=== PATIENT | female | born 1960 | race Caucasian/White ===

== ENCOUNTER 2017-06-11 13:32 | Emergency (ER) | payer OTHER ==
[2017-06-11 15:20] LABS: ADD MAN DIFF? NO
[2017-06-11 15:21] LABS: BASO % 1 % (0-3); EOS # 0.1 x10^3/uL (0.0-0.7); EOS % 2 % (0-3); HEMATOCRIT 37.4 % (36.0-47.0); HEMOGLOBIN 12.8 g/dL (12.0-15.5); LYMPH # 2.3 x10^3/uL (1.0-4.8); LYMPH % 32 % (24-48); MEAN CORPUSCULAR HEMOGLOBIN 25 pg (25-35); MEAN CORPUSCULAR HGB CONC 34 g/dL (31-37); MEAN CORPUSCULAR VOLUME 74 fL (79-100); MONO # 0.8 x10^3/uL (0.0-1.1); MONO % 11 % (0-9); NEUT % 55 % (31-73); PLATELET COUNT 227 x10^3/uL (140-400); RED BLOOD COUNT 5.08 x10^6/uL (3.50-5.40); RED CELL DISTRIBUTION WIDTH 15.4 % (11.5-14.5); WHITE BLOOD COUNT 7.2 x10^3/uL (4.0-11.0)
[2017-06-11 15:34] LABS: ANION GAP 11 (6-14); BLOOD UREA NITROGEN 11 mg/dL (7-20); CALCIUM 9.2 mg/dL (8.5-10.1); CARBON DIOXIDE 26 mmol/L (21-32); CHLORIDE 101 mmol/L (98-107); CREATININE 0.7 mg/dL (0.6-1.0); GFR 86.2; GLUCOSE 98 mg/dL (70-99); POTASSIUM 3.7 mmol/L (3.5-5.1); SODIUM 138 mmol/L (136-145)
[2017-06-11 15:39] LABS: ALBUMIN 3.7 g/dL (3.4-5.0); ALK PHOS 179 U/L (46-116); ALT (SGPT) 42 U/L (14-59); AST (SGOT) 51 U/L (15-37); DIRECT BILIRUBIN 0.1 mg/dL (0.0-0.2); MAGNESIUM 1.7 mg/dL (1.8-2.4); TOTAL BILIRUBIN 0.4 mg/dL (0.2-1.0); TOTAL PROTEIN 8.9 g/dL (6.4-8.2)
[2017-06-11 15:42] LABS: TROPONINI < 0.017 ng/mL (0.000-0.055)
[2017-06-11 15:47] LABS: CKMB MASS 2.3 ng/mL (0.0-3.6); CREATINE KINASE 231 U/L (26-192)
[2017-06-11 15:47] LABS: NT-PRO BNP 23 pg/mL (0-124); THYROID STIM HORMONE (TSH) 0.462 uIU/mL (0.358-3.74)
[2017-06-11 16:07] LABS: BILIRUBIN,URINE NEGATIVE (NEG); CLARITY,URINE CLEAR; COLOR,URINE YELLOW; GLUCOSE,URINE NEGATIVE (NEG); NITRITE,URINE NEGATIVE (NEG); PH,URINE 5.5; PROTEIN,URINE NEGATIVE (NEG-TRACE)
[2017-06-11 16:13] LABS: BARBITURATES NEG (NEG); BENZODIAZEPINES NEG (NEG); CANNABINOIDS NEG (NEG); COCAINE NEG (NEG); METHADONE NEG (NEG); OPIATES NEG (NEG); PHENCYCLIDINE NEG (NEG)
[2017-06-11 16:16] LABS: AMPHETAMINE/METHAMPHETAMINE NEG (NEG); ETHANOL, URINE NEG (NEG)
[2017-06-11 16:19] LABS: BACTERIA,URINE FEW /HPF (0-FEW); RBC,URINE OCC /HPF (0-2); SQUAMOUS EPITHELIAL CELL,UR MOD /LPF
== END 2017-06-11 17:10 | disposition home or self-care (01) ==
LOC: ER 13:32
DX: N39.0 Urinary tract infection, site not specified (principal); I10 Essential (primary) hypertension; J45.909 Unspecified asthma, uncomplicated; F12.10 Cannabis abuse, uncomplicated; Z90.710 Acquired absence of both cervix and uterus; Z90.49 Acquired absence of other specified parts of digestive tract; Z88.0 Allergy status to penicillin; Z88.5 Allergy status to narcotic agent; Z88.6 Allergy status to analgesic agent
CPT/HCPCS: 36415; 80048; 80076; 80307; 81001; 82553; 83735; 83880; 84443; 84484; 85025; 87086; 93005; 99285-25

== ENCOUNTER 2018-07-15 18:00 | Inpatient (IN) | payer SELFPAY ==
[~2018-07-15] VITALS: Ht 170.2 cm; Wt 90.9 kg
[~2018-07-15 18:00] MED LIST: AMLO5TAB10 PO; HYDR-3164 PO; NAPR500T8 PO; SULF1TAB24 PO
[2018-07-15] MEDS ORDERED: ADENOSINE 6 MG/2 ML VIAL. IV ONE ×2 (18:10→18:15)
[2018-07-15] MEDS ORDERED: ASPIRIN 325 MG TABLET PO ONE (18:15)
[2018-07-15] MEDS ORDERED: IV NORMAL SALINE 1000ML BAG 1,000 ML IV ONE (18:15)
[2018-07-15 18:34] LABS: BASO % 1 % (0-3); EOS % 0 % (0-3); HEMATOCRIT 43.5 % (36.0-47.0); HEMOGLOBIN 14.6 g/dL (12.0-15.5); LYMPH # 2.9 x10^3/uL (1.0-4.8); LYMPH % 52 % (24-48); MEAN CORPUSCULAR HEMOGLOBIN 25 pg (25-35); MEAN CORPUSCULAR HGB CONC 33 g/dL (31-37); MEAN CORPUSCULAR VOLUME 74 fL (79-100); MONO # 0.7 x10^3/uL (0.0-1.1); MONO % 13 % (0-9); NEUT # 1.9 x10^3uL (1.8-7.7); NEUT % 34 % (31-73); PLATELET COUNT 197 x10^3/uL (140-400); RED BLOOD COUNT 5.91 x10^6/uL (3.50-5.40); RED CELL DISTRIBUTION WIDTH 15.7 % (11.5-14.5); WHITE BLOOD COUNT 5.6 x10^3/uL (4.0-11.0)
[2018-07-15 18:53] LABS: PROTHROMBIN TIME PATIENT 12.4 SEC (11.7-14.0)
--- NOTE | 2018-07-15 18:53 | PHYS DOC ---
Past Medical History Past Medical History: Asthma, Hypertension Additional Past Medical Histor: Tubal Past Surgical History: Cholecystectomy, Hysterectomy Additional Past Surgical Histo: R oophorectomy Additional Information: Nonsmoker Alcohol Use: Occasionally Drug Use: Marijuana Adult General Chief Complaint Chief Complaint: RAPID HEART RATE HPI HPI 58-year-old female presents with report of palpitations which started at 5:04 PM this evening. Patient reports she has had these episodes previously which only lasted for a few seconds. Patient reports this episode lasted much longer. Patient denies known trauma. Denies leg swelling or calf tenderness. Denies pleuritic pain. Patient does report some chest discomfort. She does have some dizziness with exertion. Patient also reports history of recent asthma exacerbation and was prescribed steroids and antibiotics but did not fill the prescriptions due to financial constraints. Denies fever or chills. Review of Systems Review of Systems Constitutional: Denies fever or chills [] Eyes: Denies change in visual acuity, redness, or eye pain [] HENT: Denies nasal congestion or sore throat [] Respiratory: Reports some wheezing and shortness of breath [] Cardiovascular: Reports chest discomfort and palpitations GI: Denies abdominal pain, nausea, vomiting : Denies dysuria or hematuria [] Musculoskeletal: Denies back pain or joint pain [] Integument: Denies rash or skin lesions [] Neurologic: Denies headache; reports dizziness Complete systems were reviewed and found to be within normal limits, except as documented in this note. Current Medications Current Medications Current Medications Medications (Trade) Dose Ordered Sig/Baljinder Start Time Stop Time Status Last Admin Dose Admin Adenosine (Adenocard) 6 mg 1X ONCE 07/15/18 18:15 07/15/18 18:16 DC 07/15/18 18:17 6 MG Aspirin (Milana Aspirin) 325 mg 1X ONCE 07/15/18 18:15 07/15/18 18:16 DC 07/15/18 18:42 325 MG Dexamethasone Sodium Phosphate (Decadron) 10 mg 1X ONCE 07/15/18 19:45 07/15/18 19:46 DC 07/15/18 19:45 10 MG Potassium Chloride (Klor-Con) 40 meq 1X ONCE 07/15/18 19:45 07/15/18 19:46 DC 07/15/18 19:45 40 MEQ Sodium Chloride 1,000 ml @ 1,000 mls/hr 1X ONCE 07/15/18 18:15 07/15/18 19:14 DC 07/15/18 18:14 1,000 MLS/HR Allergies Allergies Allergies Coded Allergies Type Severity Reaction Last Updated Verified Penicillins Allergy Unknown 06/11/17 Yes morphine Adverse Reaction Mild Nausea 06/24/16 Yes codeine Adverse Reaction Unknown constipation 06/11/17 Yes Physical Exam Physical Exam Constitutional: Well developed, well nourished, anxious, non-toxic appearance. [ ] HENT: Normocephalic, atraumatic Eyes: Conjunctiva normal, no discharge. [] Neck: Normal range of motion, no tenderness, supple, no stridor. [] Cardiovascular: Tachycardia, Radial pulses and posterior tibialis pulses equal bilaterally Lungs & Thorax: Significant wheezing noted bilaterally, L>R, no accessory muscle use Abdomen: Soft, no tenderness Skin: Warm, dry Extremities: No calf tenderness, ROM intact, no edema. [] Neurologic: Alert and oriented X 3, no focal deficits noted. [] Psychologic: Affect anxious judgement normal Current Patient Data Vital Signs Vital Signs Date Time Temp Pulse Resp B/P (MAP) Pulse Ox O2 Delivery O2 Flow Rate FiO2 07/15/18 19:25 88 26 151/91 (111) 99 Nasal Cannula 2.0 07/15/18 18:00 98.3 98.3 Lab Values Laboratory Tests Test 07/15/18 18:18 White Blood Count 5.6 x10^3/uL (4.0-11.0) Red Blood Count 5.91 x10^6/uL (3.50-5.40) H Hemoglobin 14.6 g/dL (12.0-15.5) Hematocrit 43.5 % (36.0-47.0) Mean Corpuscular Volume 74 fL (79-100) L Mean Corpuscular Hemoglobin 25 pg (25-35) Mean Corpuscular Hemoglobin Concent 33 g/dL (31-37) Red Cell Distribution Width 15.7 % (11.5-14.5) H Platelet Count 197 x10^3/uL (140-400) Neutrophils (%) (Auto) 34 % (31-73) Lymphocytes (%) (Auto) 52 % (24-48) H Monocytes (%) (Auto) 13 % (0-9) H Eosinophils (%) (Auto) 0 % (0-3) Basophils (%) (Auto) 1 % (0-3) Neutrophils # (Auto) 1.9 x10^3uL (1.8-7.7) Lymphocytes # (Auto) 2.9 x10^3/uL (1.0-4.8) Monocytes # (Auto) 0.7 x10^3/uL (0.0-1.1) Eosinophils # (Auto) 0.0 x10^3/uL (0.0-0.7) Basophils # (Auto) 0.0 x10^3/uL (0.0-0.2) Prothrombin Time 12.4 SEC (11.7-14.0) Prothrombin Time INR 1.0 (0.8-1.1) PTT 26 SEC (24-38) Sodium Level 143 mmol/L (136-145) Potassium Level 3.3 mmol/L (3.5-5.1) L Chloride Level 105 mmol/L (98-107) Carbon Dioxide Level 24 mmol/L (21-32) Anion Gap 14 (6-14) Blood Urea Nitrogen 13 mg/dL (7-20) Creatinine 1.0 mg/dL (0.6-1.0) Estimated GFR (Cockcroft-Gault) 56.9 BUN/Creatinine Ratio 13 (6-20) Glucose Level 102 mg/dL (70-99) H Calcium Level 9.5 mg/dL (8.5-10.1) Magnesium Level 2.1 mg/dL (1.8-2.4) Total Bilirubin 0.4 mg/dL (0.2-1.0) Aspartate Amino Transferase (AST) 42 U/L (15-37) H Alanine Aminotransferase (ALT) 29 U/L (14-59) Alkaline Phosphatase 100 U/L (46-116) Creatine Kinase 629 U/L (26-192) H Creatine Kinase MB (Mass) 6.0 ng/mL (0.0-3.6) H Creatine Kinase MB Relative Index 1.0 % (0-4) Troponin I Quantitative < 0.017 ng/mL (0.000-0.055) CO-Cro-X-Type Natriuretic Peptide 55 pg/mL (0-124) Total Protein 9.1 g/dL (6.4-8.2) H Albumin 4.1 g/dL (3.4-5.0) Albumin/Globulin Ratio 0.8 (1.0-1.7) L Laboratory Tests 07/15/18 18:18 Laboratory Tests 07/15/18 18:18 EKG EKG @1804 SVT at 174bpm, ST depression noted in II,III,avF and V3-V6 consistent for demand ischemia, t wave inversions also noted to II,III, and aVF. @1817 (s/p adenosine 6mg): Sinus tachycardia at 102bpm, occasional PVC, incomplete RBBB, improvement of previously seen ST depressions and no longer noted t wave inversions Radiology/Procedures Radiology/Procedures PROCEDURE: PORTABLE CHEST 1V EXAM: Chest, single view. HISTORY: Palpitations. COMPARISON: None. FINDINGS: A frontal view of the chest is obtained. There is no infiltrate, pleural effusion or pneumothorax. The heart is normal in size for portable technique. IMPRESSION: No acute pulmonary finding. Electronically signed by: Eve Shin MD (07/15/2018 7:59 PM) [place] [id number] Course & Med Decision Making Course & Med Decision Making Pertinent Labs and Imaging studies reviewed. (See chart for details) Patient presents with report of palpitations which started proximal 1 hour prior to arrival. Patient noted to be an SVT based on telemetry monitoring and twelve-lead EKG. Signs of demand ischemia also appreciated. Attempted vagal maneuvers without success. 6 mg of adenosine utilized with successful cardioversion back to normal sinus rhythm and resolution of demand ischemia. Labs obtained and posted to chart. Initial troponin WNL. CPK elevated. IVF hydration given. Aspirin provided. Chest x-ray without acute process. Patient with wheezing consistent for asthmatic bronchitis. Dexamethasone and Xopenex tx provided. Patient requiring admission for further evaluation and treatment. Discussed with Dr. Kumar (hospitalist) who is in agreement with admission. Discussed findings and plan with patient and family, who acknowledge understanding and agreement. Dragon Disclaimer Dragon Disclaimer This electronic medical record was generated, in whole or in part, using a voice recognition dictation system. Departure Departure Impression: Primary Impression: SVT (supraventricular tachycardia) Additional Impressions: Bronchitis Hypokalemia Disposition: ADMITTED INPATIENT (CVC) Admitting Physician: Francoise Kumar Condition: GUARDED Referrals: SREEKANTH EDWARDS MD (PCP) Critical Care Time Critical care time was 30 minutes which includes time at bedside, spent in discussion of patient's care with specialists and/or family members, with interpretation of laboratory and/or radiological studies and is exclusive of procedures. Problem Qualifiers SHAREE MICHELLE DO Jul 15, 2018 18:53
[2018-07-15 18:59] LABS: CALCIUM 9.5 mg/dL (8.5-10.1); GFR 56.9; POTASSIUM 3.3 mmol/L (3.5-5.1)
[2018-07-15 19:04] LABS: ALBUMIN 4.1 g/dL (3.4-5.0); ALBUMIN/GLOBULIN RATIO 0.8 (1.0-1.7); MAGNESIUM 2.1 mg/dL (1.8-2.4); TOTAL BILIRUBIN 0.4 mg/dL (0.2-1.0); TOTAL PROTEIN 9.1 g/dL (6.4-8.2)
[2018-07-15] MEDS ORDERED: DEXAMETHASONE SOD PHOS 20 MG/5 ML VIAL. IV ONE (19:45)
[2018-07-15] MEDS ORDERED: POTASSIUM CHLORIDE 20 MEQ TABLET.ER. PO ONE (19:45)
--- NOTE | 2018-07-15 20:03 | RAD ---
EXAM: Chest, single view. HISTORY: Palpitations. COMPARISON: None. FINDINGS: A frontal view of the chest is obtained. There is no infiltrate, pleural effusion or pneumothorax. The heart is normal in size for portable technique. IMPRESSION: No acute pulmonary finding. Electronically signed by: Eve Shin MD (07/15/2018 7:59 PM) [id number]
[2018-07-15] MEDS ORDERED: LEVALBUTEROL 1.25 MG/0.5 ML NEBU. NEB ONE (20:15)
[2018-07-15 21:15] VITALS: BP 154/85
[2018-07-15 23:15] VITALS: BP 137/78
[2018-07-16 03:45] VITALS: BP 178/78
[2018-07-16 08:00] VITALS: BP 176/87
--- NOTE | 2018-07-16 10:31 | NUR ---
PATIENTS HEART RATE IN 150'S PATIENT STATING SHE CAN FEEL HER HEART RACING. PATIENT ASKED TO BEAR DOWN. PATIENTS HEART CONTINUED TO SUSTAIN IN 140'S. PATIENT ASKED TO BEAR DOWN AGAIN AND PATIENTS HEART RATE LOWERED TO 101 THEN TO 70'S. WILL CONTINUE TO MONITOR PATIENT.
--- NOTE | 2018-07-16 10:46 | EKG ---
[facility] [address] [place] [address] Test Date: 2018-07-15 Test Time: 18:17:30 Pat Name: ART MITCHELL Department: Room: 209 1 Gender: F Marine Superintendent: : 1960 Requested By: SHAREE MICHELLE Order Number: [id number] Reading MD: Evangelista Varela Measurements Intervals [place] Rate: 102 P: 56 ME: 138 QRS: 42 QRSD: 78 T: 58 QT: 310 QTc: 408 Interpretive Statements SINUS TACHYCARDIA COMPLEX(ES) WITH ABERRANT INTRAVENTRICULAR CONDUCTION VENTRICULAR PREMATURE COMPLEX(ES) QRS(T) CONTOUR ABNORMALITY CONSIDER ANTEROLATERAL MYOCARDIAL DAMAGE Electronically Signed On 07-19-2018 11:08:50 BEER COOLER by Evangelista Varela
--- NOTE | 2018-07-16 10:46 | EKG ---
[facility] [address] [place] [address] Test Date: 2018-07-15 Test Time: 18:04:58 Pat Name: ART MITCHELL Department: Room: 209 1 Gender: F Poke In: : 1960 Requested By: SHAREE MICHELLE Order Number: [id number] Reading MD: Evangelista Varela Measurements Intervals [place] Rate: 174 P: NE: QRS: 43 QRSD: 74 T: -85 QT: 254 QTc: 438 Interpretive Statements SUPRAVENTRICULAR TACHYCARDIA ST ABNORMALITY, POSSIBLE INFEROLATERAL SUBENDOCARDIAL INJURY ABNORMAL ECG Electronically Signed On 07-19-2018 11:08:33 CLINICAL PRODUCT SPECIALIST by Evangelista Varela
[2018-07-16 11:12] VITALS: BP 146/92
--- NOTE | 2018-07-16 12:28 | HP ---
ADMIT DATE: 07/16/2018 CHIEF COMPLAINT: Rapid heart rate. HISTORY OF PRESENT ILLNESS: The patient is a pleasant 58-year-old female who presented to the ER with palpitations and a rapid heart rate, started at 5:04 p.m. yesterday. Describes it as agonizing, rated at 10/10, worse with moving, better with sitting still. She tried taking some home medicines and that did not work. While in the ER, she was noted to be in SVT. I believe she got some adenosine that seems to have worked, but she also has harsh cough consistent with bronchitis. I have discussed the case with ER physician. We are going to admit the patient and give her some IV antibiotics, breathing treatments and oxygen, steroids and have Cardiology see her as well. PAST MEDICAL HISTORY: Asthma, hypertension, tubal , cholecystectomy, hysterectomy, right oophorectomy. ALLERGIES: PENICILLIN, CODEINE, AND MORPHINE. FAMILY HISTORY: Coronary artery disease. SOCIAL HISTORY: She is trying to quit smoking, but still smokes several cigarettes a day. She used to smoke 3 packs. MEDICATIONS: Reviewed. She is on amlodipine and naproxen. REVIEW OF SYSTEMS: GENERAL: No history of weight change, weakness or fevers. SKIN: No bruising, hair changes or rashes. EYES: No blurred, double or loss of vision. NOSE AND THROAT: No history of nosebleeds, hoarseness or sore throat. HEART: No history of palpitations, chest pain or shortness of breath on exertion. LUNGS: She complains of a cough. GASTROINTESTINAL: Denies changes in appetite, nausea, vomiting, diarrhea or constipation. GENITOURINARY: No history of frequency, urgency, hesitancy or nocturia. NEUROLOGIC: Denies history of numbness, tingling, tremor or weakness. PSYCHIATRIC: No history of panic, anxiety or depression. ENDOCRINE: No history of heat or cold intolerance, polyuria or polydipsia. EXTREMITIES: Denies muscle weakness, joint pain, pain on walking or stiffness. PHYSICAL EXAMINATION: VITAL SIGNS: Temperature 98, pulse 78, respirations 18, blood pressure 146/92. GENERAL: She is alert, cooperative. HEART: Normal S1, S2. LUNGS: Mostly clear, but she has a harsh cough. ABDOMEN: Soft. EXTREMITIES: Trace edema. SKIN: No rash. ENDOCRINE: No thyromegaly. LYMPHATICS: No cervical nodes. HEMATOPOIETIC: No bruising. PSYCHIATRIC: She is stable. LABORATORY DATA: Hematology is normal. Electrolytes are normal other than potassium of 3.3, glucose is 102. CPK 629, CK-MB mass index is 6%, but troponin is 0. INR is 1. Chest x-ray is negative. ASSESSMENT AND PLAN: Resolving supraventricular tachycardia with probable clinical bronchitis and mild rhabdomyolysis, hypokalemia. The patient is being admitted. We will give her IV fluids, DuoNebs (I wanted to use Xopenex, but apparently we do not have it), IV Levaquin, IV Solu-Medrol, replace her potassium, frequent labs, home meds. DVT prophylaxis, cardiac monitoring. JULIETA FREIRE DO DR: ROSANNA/humberto JOB#: [id number] / [id number]
[2018-07-16] MEDS: IPRATRPIUM/ALBUTEROL 0.5/2.5MG 3 ML NEBU. NEB SCH ×3 (12:30→19:00)
--- NOTE | 2018-07-16 13:25 | PDOC2 ---
CONSULT Date of Consult Date of Consult DATE: 07/16/18 TIME: 13:20 Reason for Consult Reason for Consult: SVT Referring Physician Referring Physician: Dr. Kumar Identification/Chief Complaint Chief Complaint SOB Source Source: Chart review, Patient History of Present Illness Reason for Visit: The patient is a 58-year-old female with a history of asthma. She had had a recent exacerbation of her asthma and was prescribed steroids antibiotics but did not take these medications. The patient came to the emergency room for episodes of increasing shortness of breath. In the emergency room the patient was found to be in a supraventricular tachycardia. This responded to adenosine and she has resumed sinus rhythm. Chest x-ray shows no acute changes. Troponins have been normal. The patient now is resting much more comfortably. Past Medical History Cardiovascular: HTN Pulmonary: Asthma, Bronchitis Past Surgical History Past Surgical History: Cholecystectomy, Hysterectomy, Other (tubal and an oophorectomy.) Family History Family History: Heart Disease Social History <1 pack per day ALCOHOL: occassional Drugs: Marijuana Current Problem List Problem List Problems Medical Problems: (1) Hypokalemia Status: Acute (2) SVT (supraventricular tachycardia) Status: Acute Current Medications Current Medications Current Medications Adenosine (Adenocard) 6 mg STK-MED ONCE IV ; Start 07/15/18 at 18:10; Stop at 18:11; Status DC Aspirin ([place] Aspirin) 325 mg 1X ONCE PO Last administered on 07/15/18at 18:42 ; Start 07/15/18 at 18:15; Stop 07/15/18 at 18:16; Status DC Sodium Chloride 1,000 ml @ 1,000 mls/hr 1X ONCE IV Last administered on at 18:14; Start 07/15/18 at 18:15; Stop 07/15/18 at 19:14; Status DC Adenosine (Adenocard) 6 mg 1X ONCE IV Last administered on 07/15/18at 18:17; Start 07/15/18 at 18:15; Stop 07/15/18 at 18:16; Status DC Potassium Chloride (Klor-Con) 40 meq 1X ONCE PO Last administered on 07/15/18at 19:45; Start 07/15/18 at 19:45; Stop 07/15/18 at 19:46; Status DC Dexamethasone Sodium Phosphate (Decadron) 10 mg 1X ONCE IV Last administered on 07/15/18at 19:45; Start 07/15/18 at 19:45; Stop 07/15/18 at 19:46; Status DC Levalbuterol HCl (Xopenex) 2.5 mg 1X ONCE NEB Last administered on 07/15/18at 20 :05; Start 07/15/18 at 20:15; Stop 07/15/18 at 20:16; Status DC Influenza Virus Vaccine (Afluria Trivalent [id number] Syringe) 0.5 ml ONCE ONCE VAX IM ; Start 07/16/18 at 09:00; Stop 07/16/18 at 09:01; Status DC Levofloxacin/ Dextrose 100 ml @ 100 mls/hr Q24H IV ; Start 07/16/18 at 13:00 Methylprednisolone Sodium Succinate (SOLU-Medrol 40MG VIAL) 30 mg BID IV ; Start 07/16/18 at 13:00 Albuterol/ Ipratropium (Duoneb) 3 ml RTQID NEB ; Start 07/16/18 at 12:30 Active Scripts Active Allergies Allergies: Coded Allergies: Penicillins (Verified Allergy, Intermediate, 07/16/18) codeine (Verified Adverse Reaction, Mild, constipation, 07/16/18) morphine (Verified Adverse Reaction, Mild, Nausea, 06/24/16) ROS Respiratory: YES: Cough, Shortness of breath Physical Exam General: mild distress Lungs: Other (mildly decreased breath sounds) Heart: Regular rate Abdomen: Normal bowel sounds Vitals VITALS Vital Signs Date Time Temp Pulse Resp B/P (MAP) Pulse Ox O2 Delivery O2 Flow Rate FiO2 07/16/18 11:12 98.3 78 18 146/92 (110) 94 Nasal Cannula 2.0 98.3 Labs Labs Laboratory Tests Test 07/15/18 18:18 White Blood Count 5.6 x10^3/uL (4.0-11.0) Red Blood Count 5.91 x10^6/uL (3.50-5.40) Hemoglobin 14.6 g/dL (12.0-15.5) Hematocrit 43.5 % (36.0-47.0) Mean Corpuscular Volume 74 fL (79-100) Mean Corpuscular Hemoglobin 25 pg (25-35) Mean Corpuscular Hemoglobin Concent 33 g/dL (31-37) Red Cell Distribution Width 15.7 % (11.5-14.5) Platelet Count 197 x10^3/uL (140-400) Neutrophils (%) (Auto) 34 % (31-73) Lymphocytes (%) (Auto) 52 % (24-48) Monocytes (%) (Auto) 13 % (0-9) Eosinophils (%) (Auto) 0 % (0-3) Basophils (%) (Auto) 1 % (0-3) Neutrophils # (Auto) 1.9 x10^3uL (1.8-7.7) Lymphocytes # (Auto) 2.9 x10^3/uL (1.0-4.8) Monocytes # (Auto) 0.7 x10^3/uL (0.0-1.1) Eosinophils # (Auto) 0.0 x10^3/uL (0.0-0.7) Basophils # (Auto) 0.0 x10^3/uL (0.0-0.2) Prothrombin Time 12.4 SEC (11.7-14.0) Prothromb Time International Ratio 1.0 (0.8-1.1) Activated Partial Thromboplast Time 26 SEC (24-38) Sodium Level 143 mmol/L (136-145) Potassium Level 3.3 mmol/L (3.5-5.1) Chloride Level 105 mmol/L (98-107) Carbon Dioxide Level 24 mmol/L (21-32) Anion Gap 14 (6-14) Blood Urea Nitrogen 13 mg/dL (7-20) Creatinine 1.0 mg/dL (0.6-1.0) Estimated GFR (Cockcroft-Gault) 56.9 BUN/Creatinine Ratio 13 (6-20) Glucose Level 102 mg/dL (70-99) Calcium Level 9.5 mg/dL (8.5-10.1) Magnesium Level 2.1 mg/dL (1.8-2.4) Total Bilirubin 0.4 mg/dL (0.2-1.0) Aspartate Amino Transf (AST/SGOT) 42 U/L (15-37) Alanine Aminotransferase (ALT/SGPT) 29 U/L (14-59) Alkaline Phosphatase 100 U/L (46-116) Creatine Kinase 629 U/L (26-192) Creatine Kinase MB (Mass) 6.0 ng/mL (0.0-3.6) Creatine Kinase MB Relative Index 1.0 % (0-4) Troponin I Quantitative < 0.017 ng/mL (0.000-0.055) MF-Ztz-H-Type Natriuretic Peptide 55 pg/mL (0-124) Total Protein 9.1 g/dL (6.4-8.2) Albumin 4.1 g/dL (3.4-5.0) Albumin/Globulin Ratio 0.8 (1.0-1.7) Laboratory Tests Test 07/15/18 18:18 White Blood Count 5.6 x10^3/uL (4.0-11.0) Red Blood Count 5.91 x10^6/uL (3.50-5.40) Hemoglobin 14.6 g/dL (12.0-15.5) Hematocrit 43.5 % (36.0-47.0) Mean Corpuscular Volume 74 fL (79-100) Mean Corpuscular Hemoglobin 25 pg (25-35) Mean Corpuscular Hemoglobin Concent 33 g/dL (31-37) Red Cell Distribution Width 15.7 % (11.5-14.5) Platelet Count 197 x10^3/uL (140-400) Neutrophils (%) (Auto) 34 % (31-73) Lymphocytes (%) (Auto) 52 % (24-48) Monocytes (%) (Auto) 13 % (0-9) Eosinophils (%) (Auto) 0 % (0-3) Basophils (%) (Auto) 1 % (0-3) Neutrophils # (Auto) 1.9 x10^3uL (1.8-7.7) Lymphocytes # (Auto) 2.9 x10^3/uL (1.0-4.8) Monocytes # (Auto) 0.7 x10^3/uL (0.0-1.1) Eosinophils # (Auto) 0.0 x10^3/uL (0.0-0.7) Basophils # (Auto) 0.0 x10^3/uL (0.0-0.2) Prothrombin Time 12.4 SEC (11.7-14.0) Prothromb Time International Ratio 1.0 (0.8-1.1) Activated Partial Thromboplast Time 26 SEC (24-38) Sodium Level 143 mmol/L (136-145) Potassium Level 3.3 mmol/L (3.5-5.1) Chloride Level 105 mmol/L (98-107) Carbon Dioxide Level 24 mmol/L (21-32) Anion Gap 14 (6-14) Blood Urea Nitrogen 13 mg/dL (7-20) Creatinine 1.0 mg/dL (0.6-1.0) Estimated GFR (Cockcroft-Gault) 56.9 BUN/Creatinine Ratio 13 (6-20) Glucose Level 102 mg/dL (70-99) Calcium Level 9.5 mg/dL (8.5-10.1) Magnesium Level 2.1 mg/dL (1.8-2.4) Total Bilirubin 0.4 mg/dL (0.2-1.0) Aspartate Amino Transf (AST/SGOT) 42 U/L (15-37) Alanine Aminotransferase (ALT/SGPT) 29 U/L (14-59) Alkaline Phosphatase 100 U/L (46-116) Creatine Kinase 629 U/L (26-192) Creatine Kinase MB (Mass) 6.0 ng/mL (0.0-3.6) Creatine Kinase MB Relative Index 1.0 % (0-4) Troponin I Quantitative < 0.017 ng/mL (0.000-0.055) RX-Ijj-T-Type Natriuretic Peptide 55 pg/mL (0-124) Total Protein 9.1 g/dL (6.4-8.2) Albumin 4.1 g/dL (3.4-5.0) Albumin/Globulin Ratio 0.8 (1.0-1.7) Images Images Chest x-ray with no acute changes. Assessment/Plan Assessment/Plan 1. Asthma/bronchitis. Patient has been started on antibiotics and steroid treatment. 2. Paroxysmal supraventricular tachycardia. Probably secondary to the patient's pulmonary condition. Will not use beta blockers in the setting of her pulmonary issues. We'll start on lower dose calcium channel blockers. 3. Hypokalemia. Being replaced. Thank you for allowing us to participate in the care of your patient. DAISY HANCOCK MD Jul 16, 2018 13:25
[2018-07-16] MEDS: methylPREDNISolone SOD SUCC PF 40 MG/ML VIAL. IV SCH ×2 (13:47→20:23)
[2018-07-16 15:05] VITALS: BP 157/85
[2018-07-16 18:29] VITALS: BP 160/88
[2018-07-16 23:05] VITALS: BP 149/91
[2018-07-17 03:10] VITALS: BP 157/97
[2018-07-17 05:11] LABS: BASO % 0 % (0-3); EOS % 0 % (0-3); HEMATOCRIT 39.2 % (36.0-47.0); HEMOGLOBIN 12.9 g/dL (12.0-15.5); LYMPH # 0.7 x10^3/uL (1.0-4.8); LYMPH % 24 % (24-48); MEAN CORPUSCULAR HEMOGLOBIN 25 pg (25-35); MEAN CORPUSCULAR HGB CONC 33 g/dL (31-37); MEAN CORPUSCULAR VOLUME 75 fL (79-100); MONO # 0.2 x10^3/uL (0.0-1.1); MONO % 7 % (0-9); NEUT # 2.2 x10^3uL (1.8-7.7); NEUT % 69 % (31-73); PLATELET COUNT 171 x10^3/uL (140-400); RED BLOOD COUNT 5.24 x10^6/uL (3.50-5.40); RED CELL DISTRIBUTION WIDTH 15.3 % (11.5-14.5); WHITE BLOOD COUNT 3.1 x10^3/uL (4.0-11.0)
[2018-07-17 05:43] LABS: MAGNESIUM 2.1 mg/dL (1.8-2.4)
[2018-07-17 05:44] LABS: CHOLESTEROL/HDL RATIO 3.4
[2018-07-17 06:45] LABS: CALCIUM 9.2 mg/dL (8.5-10.1); CREATININE 0.8 mg/dL (0.6-1.0); GFR 73.7; POTASSIUM 4.9 mmol/L (3.5-5.1)
[2018-07-17 07:28] VITALS: BP 174/91
[2018-07-17] MEDS: IPRATRPIUM/ALBUTEROL 0.5/2.5MG 3 ML NEBU. NEB SCH ×4 (07:34→20:24)
[2018-07-17] MEDS: LACTOBACILLUS RHAMNOSUS GG 1 CAPSULE. PO SCH ×2 (08:25→20:43)
[2018-07-17] MEDS: methylPREDNISolone SOD SUCC PF 40 MG/ML VIAL. IV SCH ×2 (08:25→20:43)
--- NOTE | 2018-07-17 08:31 | EKG ---
[facility] [address] [place] [address] Test Date: 2018-07-17 Test Time: 07:49:50 Pat Name: ART MITCHELL Department: Room: 209 1 Gender: F Clay Temperer: MERONRT : 1960 Requested By: DAISY HANCOCK Order Number: [id number] Reading MD: Naseem Powell MD Measurements Intervals [place] Rate: 71 P: 51 ID: [id number] QRS: 45 QRSD: 80 T: 56 QT: 380 QTc: 413 Interpretive Statements SINUS RHYTHM VENTRICULAR PREMATURE COMPLEX(ES) Electronically Signed On 07-19-2018 7:00:04 SMASHER by Naseem Powell MD
--- NOTE | 2018-07-17 09:23 | PDOC ---
PROGRESS NOTES Subjective Subjective Patient seen and examined Objective Objective Vital Signs Date Time Temp Pulse Resp B/P (MAP) Pulse Ox O2 Delivery O2 Flow Rate FiO2 07/17/18 08:25 97 174/91 07/17/18 07:36 99 Room Air 07/17/18 07:28 97.9 16 97.9 07/16/18 19:51 2.0 Intake and Output 07/17/18 07:00 Intake Total 1100 ml Output Total 1300 ml Balance -200 ml Intake Oral 1100 ml Output Urine Total 1300 ml Physical Exam Abdomen: Normal bowel sounds Heart: Regular rate General: No acute distress Lungs: Other (slightly decreased breath sounds) Assessment Assessment Problems Medical Problems: (1) Hypokalemia Status: Acute (2) SVT (supraventricular tachycardia) Status: Acute 1. Asthma/bronchitis. Patient is improving on present treatment. 2. Paroxysmal supraventricular tachycardia. Probably secondary to the patient's pulmonary condition. Will not use beta blockers in the setting of her pulmonary issues. Start on calcium channel blockers. Rhythm has been stable overnight. 3. Hypokalemia. Being replaced. Morning potassium level of 4.9. Comment Review of Relevant I have reviewed the following items doreen (where applicable) has been applied. Labs Laboratory Tests Test 07/15/18 18:18 07/17/18 04:15 White Blood Count 5.6 x10^3/uL (4.0-11.0) 3.1 x10^3/uL (4.0-11.0) Red Blood Count 5.91 x10^6/uL (3.50-5.40) 5.24 x10^6/uL (3.50-5.40) Hemoglobin 14.6 g/dL (12.0-15.5) 12.9 g/dL (12.0-15.5) Hematocrit 43.5 % (36.0-47.0) 39.2 % (36.0-47.0) Mean Corpuscular Volume 74 fL (79-100) 75 fL (79-100) Mean Corpuscular Hemoglobin 25 pg (25-35) 25 pg (25-35) Mean Corpuscular Hemoglobin Concent 33 g/dL (31-37) 33 g/dL (31-37) Red Cell Distribution Width 15.7 % (11.5-14.5) 15.3 % (11.5-14.5) Platelet Count 197 x10^3/uL (140-400) 171 x10^3/uL (140-400) Neutrophils (%) (Auto) 34 % (31-73) 69 % (31-73) Lymphocytes (%) (Auto) 52 % (24-48) 24 % (24-48) Monocytes (%) (Auto) 13 % (0-9) 7 % (0-9) Eosinophils (%) (Auto) 0 % (0-3) 0 % (0-3) Basophils (%) (Auto) 1 % (0-3) 0 % (0-3) Neutrophils # (Auto) 1.9 x10^3uL (1.8-7.7) 2.2 x10^3uL (1.8-7.7) Lymphocytes # (Auto) 2.9 x10^3/uL (1.0-4.8) 0.7 x10^3/uL (1.0-4.8) Monocytes # (Auto) 0.7 x10^3/uL (0.0-1.1) 0.2 x10^3/uL (0.0-1.1) Eosinophils # (Auto) 0.0 x10^3/uL (0.0-0.7) 0.0 x10^3/uL (0.0-0.7) Basophils # (Auto) 0.0 x10^3/uL (0.0-0.2) 0.0 x10^3/uL (0.0-0.2) Prothrombin Time 12.4 SEC (11.7-14.0) Prothromb Time International Ratio 1.0 (0.8-1.1) Activated Partial Thromboplast Time 26 SEC (24-38) Sodium Level 143 mmol/L (136-145) 141 mmol/L (136-145) Potassium Level 3.3 mmol/L (3.5-5.1) 4.9 mmol/L (3.5-5.1) Chloride Level 105 mmol/L (98-107) 104 mmol/L (98-107) Carbon Dioxide Level 24 mmol/L (21-32) 25 mmol/L (21-32) Anion Gap 14 (6-14) 12 (6-14) Blood Urea Nitrogen 13 mg/dL (7-20) 12 mg/dL (7-20) Creatinine 1.0 mg/dL (0.6-1.0) 0.8 mg/dL (0.6-1.0) Estimated GFR (Cockcroft-Gault) 56.9 73.7 BUN/Creatinine Ratio 13 (6-20) Glucose Level 102 mg/dL (70-99) 188 mg/dL (70-99) Calcium Level 9.5 mg/dL (8.5-10.1) 9.2 mg/dL (8.5-10.1) Magnesium Level 2.1 mg/dL (1.8-2.4) 2.1 mg/dL (1.8-2.4) Total Bilirubin 0.4 mg/dL (0.2-1.0) Aspartate Amino Transf (AST/SGOT) 42 U/L (15-37) Alanine Aminotransferase (ALT/SGPT) 29 U/L (14-59) Alkaline Phosphatase 100 U/L (46-116) Creatine Kinase 629 U/L (26-192) Creatine Kinase MB (Mass) 6.0 ng/mL (0.0-3.6) Creatine Kinase MB Relative Index 1.0 % (0-4) Troponin I Quantitative < 0.017 ng/mL (0.000-0.055) < 0.017 ng/mL (0.000-0.055) [id number]-Type Natriuretic Peptide 55 pg/mL (0-124) Total Protein 9.1 g/dL (6.4-8.2) Albumin 4.1 g/dL (3.4-5.0) Albumin/Globulin Ratio 0.8 (1.0-1.7) Triglycerides Level 55 mg/dL (0-150) Cholesterol Level 163 mg/dL (0-200) LDL Cholesterol, Calculated 104 mg/dL (0-100) VLDL Cholesterol, Calculated 11 mg/dL (0-40) Non-HDL Cholesterol Calculated 115 mg/dL (0-129) HDL Cholesterol 48 mg/dL (40-60) Cholesterol/HDL Ratio 3.4 Laboratory Tests Test 07/17/18 04:15 White Blood Count 3.1 x10^3/uL (4.0-11.0) Red Blood Count 5.24 x10^6/uL (3.50-5.40) Hemoglobin 12.9 g/dL (12.0-15.5) Hematocrit 39.2 % (36.0-47.0) Mean Corpuscular Volume 75 fL (79-100) Mean Corpuscular Hemoglobin 25 pg (25-35) Mean Corpuscular Hemoglobin Concent 33 g/dL (31-37) Red Cell Distribution Width 15.3 % (11.5-14.5) Platelet Count 171 x10^3/uL (140-400) Neutrophils (%) (Auto) 69 % (31-73) Lymphocytes (%) (Auto) 24 % (24-48) Monocytes (%) (Auto) 7 % (0-9) Eosinophils (%) (Auto) 0 % (0-3) Basophils (%) (Auto) 0 % (0-3) Neutrophils # (Auto) 2.2 x10^3uL (1.8-7.7) Lymphocytes # (Auto) 0.7 x10^3/uL (1.0-4.8) Monocytes # (Auto) 0.2 x10^3/uL (0.0-1.1) Eosinophils # (Auto) 0.0 x10^3/uL (0.0-0.7) Basophils # (Auto) 0.0 x10^3/uL (0.0-0.2) Sodium Level 141 mmol/L (136-145) Potassium Level 4.9 mmol/L (3.5-5.1) Chloride Level 104 mmol/L (98-107) Carbon Dioxide Level 25 mmol/L (21-32) Anion Gap 12 (6-14) Blood Urea Nitrogen 12 mg/dL (7-20) Creatinine 0.8 mg/dL (0.6-1.0) Estimated GFR (Cockcroft-Gault) 73.7 Glucose Level 188 mg/dL (70-99) Calcium Level 9.2 mg/dL (8.5-10.1) Magnesium Level 2.1 mg/dL (1.8-2.4) Troponin I Quantitative < 0.017 ng/mL (0.000-0.055) Triglycerides Level 55 mg/dL (0-150) Cholesterol Level 163 mg/dL (0-200) LDL Cholesterol, Calculated 104 mg/dL (0-100) VLDL Cholesterol, Calculated 11 mg/dL (0-40) Non-HDL Cholesterol Calculated 115 mg/dL (0-129) HDL Cholesterol 48 mg/dL (40-60) Cholesterol/HDL Ratio 3.4 Medications Current Medications Adenosine (Adenocard) 6 mg STK-MED ONCE IV ; Start 07/15/18 at 18:10; Stop at 18:11; Status DC Aspirin (Milana Aspirin) 325 mg 1X ONCE PO Last administered on 07/15/18at 18:42 ; Start 07/15/18 at 18:15; Stop 07/15/18 at 18:16; Status DC Sodium Chloride 1,000 ml @ 1,000 mls/hr 1X ONCE IV Last administered on at 18:14; Start 07/15/18 at 18:15; Stop 07/15/18 at 19:14; Status DC Adenosine (Adenocard) 6 mg 1X ONCE IV Last administered on 07/15/18at 18:17; Start 07/15/18 at 18:15; Stop 07/15/18 at 18:16; Status DC Potassium Chloride (Klor-Con) 40 meq 1X ONCE PO Last administered on 07/15/18at 19:45; Start 07/15/18 at 19:45; Stop 07/15/18 at 19:46; Status DC Dexamethasone Sodium Phosphate (Decadron) 10 mg 1X ONCE IV Last administered on 07/15/18at 19:45; Start 07/15/18 at 19:45; Stop 07/15/18 at 19:46; Status DC Levalbuterol HCl (Xopenex) 2.5 mg 1X ONCE NEB Last administered on 07/15/18at 20 :05; Start 07/15/18 at 20:15; Stop 07/15/18 at 20:16; Status DC Influenza Virus Vaccine (Afluria Trivalent [id number] Syringe) 0.5 ml ONCE ONCE VAX IM ; Start 07/16/18 at 09:00; Stop 07/16/18 at 09:01; Status DC Levofloxacin/ Dextrose 100 ml @ 100 mls/hr Q24H IV Last administered on at 13:47; Start 07/16/18 at 13:00 Methylprednisolone Sodium Succinate (SOLU-Medrol 40MG VIAL) 30 mg BID IV Last administered on 07/17/18at 08:25; Start 07/16/18 at 13:00 Albuterol/ Ipratropium (Duoneb) 3 ml RTQID NEB Last administered on 07/17/18at 07 :34; Start 07/16/18 at 12:30 Diltiazem HCl (Cardizem 24hr Cd) 180 mg DAILY PO Last administered on 07/17/18at 08:25; Start 07/16/18 at 14:00 Lactobacillus Rhamnosus (Culturelle) 1 cap BID PO Last administered on at 08:25; Start 07/17/18 at 09:00 Active Scripts Active Vitals/I & O Vital Sign - Last 24 Hours 07/16/18 07/16/18 07/16/18 07/16/18 11:12 13:48 15:05 15:38 Temp 98.3 97.9 98.3 97.9 Pulse 78 78 68 Resp 18 20 B/P (MAP) 146/92 (110) 146/92 157/85 (109) Pulse Ox 94 96 100 O2 Delivery Nasal Cannula Room Air Nasal Cannula O2 Flow Rate 2.0 2.0 07/16/18 07/16/18 07/16/18 07/16/18 18:29 19:01 19:51 23:05 Temp 98.2 98.0 98.2 98.0 Pulse 71 76 Resp 16 20 B/P (MAP) 160/88 (112) 149/91 (110) Pulse Ox 98 96 O2 Delivery Room Air Room Air Nasal Cannula Room Air O2 Flow Rate 2.0 07/17/18 07/17/18 07/17/18 07/17/18 03:10 07:28 07:36 08:25 Temp 97.9 97.9 97.9 97.9 Pulse 69 97 97 Resp 20 16 B/P (MAP) 157/97 (117) 174/91 (118) 174/91 Pulse Ox 96 98 99 O2 Delivery Room Air Room Air Room Air Intake and Output 07/16/18 07/16/18 07/17/18 15:00 23:00 07:00 Intake Total 500 ml 0 ml 600 ml Output Total 600 ml 700 ml Balance 500 ml -600 ml -100 ml DAISY HANCOCK MD Jul 17, 2018 09:23
[2018-07-17 11:00] VITALS: BP 158/89
--- NOTE | 2018-07-17 13:50 | PDOC ---
PROGRESS NOTES Chief Complaint Chief Complaint SVT, bronchitis History of Present Illness History of Present Illness Pt seen and examined in her room. Alert, oriented, and cooperative. SVT, resolving. pt desires social service consult. cardiology following. hope to dc tomorrow if ok with consults. Vitals Vitals Vital Signs Date Time Temp Pulse Resp B/P (MAP) Pulse Ox O2 Delivery O2 Flow Rate FiO2 07/17/18 12:08 98 Room Air 2.0 07/17/18 11:00 98.2 83 16 158/89 (112) 98.2 Physical Exam General: Alert, Oriented X3, Cooperative, No acute distress Heart: Regular rate Lungs: Clear Abdomen: Normal bowel sounds, No tenderness, No hepatosplenomegaly Extremities: No clubbing, No cyanosis, No edema Skin: No rashes, No breakdown, No significant lesion Labs LABS Laboratory Tests Test 07/17/18 04:15 White Blood Count 3.1 x10^3/uL (4.0-11.0) Red Blood Count 5.24 x10^6/uL (3.50-5.40) Hemoglobin 12.9 g/dL (12.0-15.5) Hematocrit 39.2 % (36.0-47.0) Mean Corpuscular Volume 75 fL (79-100) Mean Corpuscular Hemoglobin 25 pg (25-35) Mean Corpuscular Hemoglobin Concent 33 g/dL (31-37) Red Cell Distribution Width 15.3 % (11.5-14.5) Platelet Count 171 x10^3/uL (140-400) Neutrophils (%) (Auto) 69 % (31-73) Lymphocytes (%) (Auto) 24 % (24-48) Monocytes (%) (Auto) 7 % (0-9) Eosinophils (%) (Auto) 0 % (0-3) Basophils (%) (Auto) 0 % (0-3) Neutrophils # (Auto) 2.2 x10^3uL (1.8-7.7) Lymphocytes # (Auto) 0.7 x10^3/uL (1.0-4.8) Monocytes # (Auto) 0.2 x10^3/uL (0.0-1.1) Eosinophils # (Auto) 0.0 x10^3/uL (0.0-0.7) Basophils # (Auto) 0.0 x10^3/uL (0.0-0.2) Sodium Level 141 mmol/L (136-145) Potassium Level 4.9 mmol/L (3.5-5.1) Chloride Level 104 mmol/L (98-107) Carbon Dioxide Level 25 mmol/L (21-32) Anion Gap 12 (6-14) Blood Urea Nitrogen 12 mg/dL (7-20) Creatinine 0.8 mg/dL (0.6-1.0) Estimated GFR (Cockcroft-Gault) 73.7 Glucose Level 188 mg/dL (70-99) Calcium Level 9.2 mg/dL (8.5-10.1) Magnesium Level 2.1 mg/dL (1.8-2.4) Troponin I Quantitative < 0.017 ng/mL (0.000-0.055) Triglycerides Level 55 mg/dL (0-150) Cholesterol Level 163 mg/dL (0-200) LDL Cholesterol, Calculated 104 mg/dL (0-100) VLDL Cholesterol, Calculated 11 mg/dL (0-40) Non-HDL Cholesterol Calculated 115 mg/dL (0-129) HDL Cholesterol 48 mg/dL (40-60) Cholesterol/HDL Ratio 3.4 Review of Systems Review of Systems general: no fever, no rash, no acute distress cardiac: no murmur, no arrhythmia, no chest pain respiratory: no shortness of breath, no wheezing, no rales/rhonchi Assessment and Plan Assessmemt and Plan Assessment resolving supraventricular tachycardia bronchitis clinical bronchitis mild rhabdomyolysis hypokalemia, resolved Plan consult social service worker per pt request continue diltiazem per cardiology IV fluids DuoNebs IV Levaquin IV Solu-Medrol hold K+ frequent labs home meds DVT prophylaxis hope to dc tomorrow if ok with consults Comment Review of Relevant I have reviewed the following items doreen (where applicable) has been applied. Labs Laboratory Tests Test 07/15/18 18:18 07/17/18 04:15 White Blood Count 5.6 x10^3/uL (4.0-11.0) 3.1 x10^3/uL (4.0-11.0) Red Blood Count 5.91 x10^6/uL (3.50-5.40) 5.24 x10^6/uL (3.50-5.40) Hemoglobin 14.6 g/dL (12.0-15.5) 12.9 g/dL (12.0-15.5) Hematocrit 43.5 % (36.0-47.0) 39.2 % (36.0-47.0) Mean Corpuscular Volume 74 fL (79-100) 75 fL (79-100) Mean Corpuscular Hemoglobin 25 pg (25-35) 25 pg (25-35) Mean Corpuscular Hemoglobin Concent 33 g/dL (31-37) 33 g/dL (31-37) Red Cell Distribution Width 15.7 % (11.5-14.5) 15.3 % (11.5-14.5) Platelet Count 197 x10^3/uL (140-400) 171 x10^3/uL (140-400) Neutrophils (%) (Auto) 34 % (31-73) 69 % (31-73) Lymphocytes (%) (Auto) 52 % (24-48) 24 % (24-48) Monocytes (%) (Auto) 13 % (0-9) 7 % (0-9) Eosinophils (%) (Auto) 0 % (0-3) 0 % (0-3) Basophils (%) (Auto) 1 % (0-3) 0 % (0-3) Neutrophils # (Auto) 1.9 x10^3uL (1.8-7.7) 2.2 x10^3uL (1.8-7.7) Lymphocytes # (Auto) 2.9 x10^3/uL (1.0-4.8) 0.7 x10^3/uL (1.0-4.8) Monocytes # (Auto) 0.7 x10^3/uL (0.0-1.1) 0.2 x10^3/uL (0.0-1.1) Eosinophils # (Auto) 0.0 x10^3/uL (0.0-0.7) 0.0 x10^3/uL (0.0-0.7) Basophils # (Auto) 0.0 x10^3/uL (0.0-0.2) 0.0 x10^3/uL (0.0-0.2) Prothrombin Time 12.4 SEC (11.7-14.0) Prothromb Time International Ratio 1.0 (0.8-1.1) Activated Partial Thromboplast Time 26 SEC (24-38) Sodium Level 143 mmol/L (136-145) 141 mmol/L (136-145) Potassium Level 3.3 mmol/L (3.5-5.1) 4.9 mmol/L (3.5-5.1) Chloride Level 105 mmol/L (98-107) 104 mmol/L (98-107) Carbon Dioxide Level 24 mmol/L (21-32) 25 mmol/L (21-32) Anion Gap 14 (6-14) 12 (6-14) Blood Urea Nitrogen 13 mg/dL (7-20) 12 mg/dL (7-20) Creatinine 1.0 mg/dL (0.6-1.0) 0.8 mg/dL (0.6-1.0) Estimated GFR (Cockcroft-Gault) 56.9 73.7 BUN/Creatinine Ratio 13 (6-20) Glucose Level 102 mg/dL (70-99) 188 mg/dL (70-99) Calcium Level 9.5 mg/dL (8.5-10.1) 9.2 mg/dL (8.5-10.1) Magnesium Level 2.1 mg/dL (1.8-2.4) 2.1 mg/dL (1.8-2.4) Total Bilirubin 0.4 mg/dL (0.2-1.0) Aspartate Amino Transf (AST/SGOT) 42 U/L (15-37) Alanine Aminotransferase (ALT/SGPT) 29 U/L (14-59) Alkaline Phosphatase 100 U/L (46-116) Creatine Kinase 629 U/L (26-192) Creatine Kinase MB (Mass) 6.0 ng/mL (0.0-3.6) Creatine Kinase MB Relative Index 1.0 % (0-4) Troponin I Quantitative < 0.017 ng/mL (0.000-0.055) < 0.017 ng/mL (0.000-0.055) AE-[id number]-[id number]-Type Natriuretic Peptide 55 pg/mL (0-124) Total Protein 9.1 g/dL (6.4-8.2) Albumin 4.1 g/dL (3.4-5.0) Albumin/Globulin Ratio 0.8 (1.0-1.7) Triglycerides Level 55 mg/dL (0-150) Cholesterol Level 163 mg/dL (0-200) LDL Cholesterol, Calculated 104 mg/dL (0-100) VLDL Cholesterol, Calculated 11 mg/dL (0-40) Non-HDL Cholesterol Calculated 115 mg/dL (0-129) HDL Cholesterol 48 mg/dL (40-60) Cholesterol/HDL Ratio 3.4 Laboratory Tests Test 07/17/18 04:15 White Blood Count 3.1 x10^3/uL (4.0-11.0) Red Blood Count 5.24 x10^6/uL (3.50-5.40) Hemoglobin 12.9 g/dL (12.0-15.5) Hematocrit 39.2 % (36.0-47.0) Mean Corpuscular Volume 75 fL (79-100) Mean Corpuscular Hemoglobin 25 pg (25-35) Mean Corpuscular Hemoglobin Concent 33 g/dL (31-37) Red Cell Distribution Width 15.3 % (11.5-14.5) Platelet Count 171 x10^3/uL (140-400) Neutrophils (%) (Auto) 69 % (31-73) Lymphocytes (%) (Auto) 24 % (24-48) Monocytes (%) (Auto) 7 % (0-9) Eosinophils (%) (Auto) 0 % (0-3) Basophils (%) (Auto) 0 % (0-3) Neutrophils # (Auto) 2.2 x10^3uL (1.8-7.7) Lymphocytes # (Auto) 0.7 x10^3/uL (1.0-4.8) Monocytes # (Auto) 0.2 x10^3/uL (0.0-1.1) Eosinophils # (Auto) 0.0 x10^3/uL (0.0-0.7) Basophils # (Auto) 0.0 x10^3/uL (0.0-0.2) Sodium Level 141 mmol/L (136-145) Potassium Level 4.9 mmol/L (3.5-5.1) Chloride Level 104 mmol/L (98-107) Carbon Dioxide Level 25 mmol/L (21-32) Anion Gap 12 (6-14) Blood Urea Nitrogen 12 mg/dL (7-20) Creatinine 0.8 mg/dL (0.6-1.0) Estimated GFR (Cockcroft-Gault) 73.7 Glucose Level 188 mg/dL (70-99) Calcium Level 9.2 mg/dL (8.5-10.1) Magnesium Level 2.1 mg/dL (1.8-2.4) Troponin I Quantitative < 0.017 ng/mL (0.000-0.055) Triglycerides Level 55 mg/dL (0-150) Cholesterol Level 163 mg/dL (0-200) LDL Cholesterol, Calculated 104 mg/dL (0-100) VLDL Cholesterol, Calculated 11 mg/dL (0-40) Non-HDL Cholesterol Calculated 115 mg/dL (0-129) HDL Cholesterol 48 mg/dL (40-60) Cholesterol/HDL Ratio 3.4 Medications Current Medications Adenosine (Adenocard) 6 mg STK-MED ONCE IV ; Start 07/15/18 at 18:10; Stop at 18:11; Status DC Aspirin ([employer] Aspirin) 325 mg 1X ONCE PO Last administered on 07/15/18at 18:42 ; Start 07/15/18 at 18:15; Stop 07/15/18 at 18:16; Status DC Sodium Chloride 1,000 ml @ 1,000 mls/hr 1X ONCE IV Last administered on at 18:14; Start 07/15/18 at 18:15; Stop 07/15/18 at 19:14; Status DC Adenosine (Adenocard) 6 mg 1X ONCE IV Last administered on 07/15/18at 18:17; Start 07/15/18 at 18:15; Stop 07/15/18 at 18:16; Status DC Potassium Chloride (Klor-Con) 40 meq 1X ONCE PO Last administered on 07/15/18at 19:45; Start 07/15/18 at 19:45; Stop 07/15/18 at 19:46; Status DC Dexamethasone Sodium Phosphate (Decadron) 10 mg 1X ONCE IV Last administered on 07/15/18at 19:45; Start 07/15/18 at 19:45; Stop 07/15/18 at 19:46; Status DC Levalbuterol HCl (Xopenex) 2.5 mg 1X ONCE NEB Last administered on 07/15/18at 20 :05; Start 07/15/18 at 20:15; Stop 07/15/18 at 20:16; Status DC Influenza Virus Vaccine (Afluria Trivalent [id number] Syringe) 0.5 ml ONCE ONCE VAX IM ; Start 07/16/18 at 09:00; Stop 07/16/18 at 09:01; Status DC Levofloxacin/ Dextrose 100 ml @ 100 mls/hr Q24H IV Last administered on at 13:47; Start 07/16/18 at 13:00 Methylprednisolone Sodium Succinate (SOLU-Medrol 40MG VIAL) 30 mg BID IV Last administered on 07/17/18 08:25; Start 07/16/18 at 13:00 Albuterol/ Ipratropium (Duoneb) 3 ml RTQID NEB Last administered on 07/17/18 12 :07; Start 07/16/18 at 12:30 Diltiazem HCl (Cardizem 24hr Cd) 180 mg DAILY PO Last administered on 07/17/18 08:25; Start 07/16/18 at 14:00 Lactobacillus Rhamnosus (Culturelle) 1 cap BID PO Last administered on 08:25; Start 07/17/18 at 09:00 Active Scripts Active Vitals/I & O Vital Sign - Last 24 Hours 07/16/18 07/16/18 07/16/18 07/16/18 13:48 15:05 15:38 18:29 Temp 97.9 98.2 97.9 98.2 Pulse 78 68 71 Resp 20 16 B/P (MAP) 146/92 157/85 (109) 160/88 (112) Pulse Ox 96 100 98 O2 Delivery Room Air Nasal Cannula Room Air O2 Flow Rate 2.0 07/16/18 07/16/18 07/16/18 07/17/18 19:01 19:51 23:05 03:10 Temp 98.0 97.9 98.0 97.9 Pulse 76 69 Resp 20 20 B/P (MAP) 149/91 (110) 157/97 (117) Pulse Ox 96 96 O2 Delivery Room Air Nasal Cannula Room Air Room Air O2 Flow Rate 2.0 07/17/18 07/17/18 07/17/18 07/17/18 07:28 07:36 08:20 08:25 Temp 97.9 97.9 Pulse 97 97 Resp 16 B/P (MAP) 174/91 (118) 174/91 Pulse Ox 98 99 O2 Delivery Room Air Room Air Room Air 07/17/18 07/17/18 11:00 12:08 Temp 98.2 98.2 Pulse 83 Resp 16 B/P (MAP) 158/89 (112) Pulse Ox 98 98 O2 Delivery Room Air Room Air O2 Flow Rate 2.0 Intake and Output 07/16/18 07/16/18 07/17/18 15:00 23:00 07:00 Intake Total 500 ml 0 ml 600 ml Output Total 600 ml 700 ml Balance 500 ml -600 ml -100 ml JULIETA FREIRE III DO Jul 17, 2018 13:50
[2018-07-17 15:00] VITALS: BP 156/84
--- NOTE | 2018-07-17 17:15 | NUR ---
PATIENT HR IN 170S AFTER COUGHING FIT. PATIENT SYMPTOMATIC. AFTER 3 TIMES OF TRYING VAGAL MANEUVER PATIENT BACK IN SR. WILL CONTINUE TO MONITOR PATIENT.
[2018-07-17 19:25] VITALS: BP 147/90
[2018-07-17 23:15] VITALS: BP 152/94
[2018-07-18 03:05] VITALS: BP 144/95
[2018-07-18 07:00] VITALS: BP 166/87
[2018-07-18 07:23] LABS: BASO % 0 % (0-3); EOS % 0 % (0-3); HEMATOCRIT 39.4 % (36.0-47.0); LYMPH # 0.8 x10^3/uL (1.0-4.8); LYMPH % 16 % (24-48); MEAN CORPUSCULAR HEMOGLOBIN 24 pg (25-35); MEAN CORPUSCULAR HGB CONC 33 g/dL (31-37); MEAN CORPUSCULAR VOLUME 74 fL (79-100); MONO # 0.3 x10^3/uL (0.0-1.1); MONO % 6 % (0-9); NEUT % 78 % (31-73); PLATELET COUNT 188 x10^3/uL (140-400); RED BLOOD COUNT 5.34 x10^6/uL (3.50-5.40); RED CELL DISTRIBUTION WIDTH 15.5 % (11.5-14.5); WHITE BLOOD COUNT 5.1 x10^3/uL (4.0-11.0)
[2018-07-18 07:32] LABS: CALCIUM 8.9 mg/dL (8.5-10.1); CREATININE 0.8 mg/dL (0.6-1.0); GFR 73.7; POTASSIUM 4.2 mmol/L (3.5-5.1)
[2018-07-18] MEDS: IPRATRPIUM/ALBUTEROL 0.5/2.5MG 3 ML NEBU. NEB SCH ×2 (07:35→11:09)
[2018-07-18] MEDS: LACTOBACILLUS RHAMNOSUS GG 1 CAPSULE. PO SCH (08:41)
[2018-07-18] MEDS: methylPREDNISolone SOD SUCC PF 40 MG/ML VIAL. IV SCH (08:41)
[2018-07-18 11:09] VITALS: BP 151/77
--- NOTE | 2018-07-18 11:23 | NUR ---
SS following for discharge planning. SS reviewed pt chart and met with pt in room. Pt is self pay pt. Pt is from home and is currently on room air. Pt reported that she works at [employer] and makes $11/hour. Pt reported that she met with [facility] this morning. Pt requested assistance with her hospital bill. SS provided pt with contact information for the business office in regards to her bill. SS contacted [facility] and was notified that pt does not qualify for disability or medicaid at this time. SS notified case management as well. Pt's RN notified.
[2018-07-18] MEDS ORDERED: DILT180C2 PO (12:04)
[2018-07-18] MEDS ORDERED: METH4TAB2 PO (12:05)
[2018-07-18] MEDS ORDERED: CIPR500T94 PO (12:06)
[2018-07-18] MEDS ORDERED: ALBU2.5V8 INH (12:07)
--- NOTE | 2018-07-18 12:25 | NUR ---
PATIENT DISCHARGING TO HOME. DISCHARGE INSTRUCTIONS GIVEN. PIV AND HEART MONITOR REMOVED. ESCORTED PATIENT TO ER ENTRANCE PER WHEELCHAIR.
--- NOTE | 2018-07-18 12:41 | PDOC ---
PROGRESS NOTES Chief Complaint Chief Complaint SVT Bronchitis History of Present Illness History of Present Illness Patient is resting comfortably in bed, denies any complaints. She is requesting to see oncology social worker and is requesting discharge. Cardiology following. Probable discharge today. Vitals Vitals Vital Signs Date Time Temp Pulse Resp B/P (MAP) Pulse Ox O2 Delivery O2 Flow Rate FiO2 07/18/18 11:09 98.0 77 18 151/77 (101) 96 Room Air 98.0 07/17/18 12:08 2.0 Physical Exam General: Alert, Oriented X3, Cooperative, No acute distress Heart: Regular rate, No murmurs Lungs: Clear Abdomen: Normal bowel sounds, No tenderness, No hepatosplenomegaly Extremities: No clubbing, No cyanosis, No edema Skin: No rashes, No significant lesion Labs LABS Laboratory Tests Test 07/18/18 06:35 White Blood Count 5.1 x10^3/uL (4.0-11.0) Red Blood Count 5.34 x10^6/uL (3.50-5.40) Hemoglobin 13.0 g/dL (12.0-15.5) Hematocrit 39.4 % (36.0-47.0) Mean Corpuscular Volume 74 fL (79-100) Mean Corpuscular Hemoglobin 24 pg (25-35) Mean Corpuscular Hemoglobin Concent 33 g/dL (31-37) Red Cell Distribution Width 15.5 % (11.5-14.5) Platelet Count 188 x10^3/uL (140-400) Neutrophils (%) (Auto) 78 % (31-73) Lymphocytes (%) (Auto) 16 % (24-48) Monocytes (%) (Auto) 6 % (0-9) Eosinophils (%) (Auto) 0 % (0-3) Basophils (%) (Auto) 0 % (0-3) Neutrophils # (Auto) 4.0 x10^3uL (1.8-7.7) Lymphocytes # (Auto) 0.8 x10^3/uL (1.0-4.8) Monocytes # (Auto) 0.3 x10^3/uL (0.0-1.1) Eosinophils # (Auto) 0.0 x10^3/uL (0.0-0.7) Basophils # (Auto) 0.0 x10^3/uL (0.0-0.2) Sodium Level 138 mmol/L (136-145) Potassium Level 4.2 mmol/L (3.5-5.1) Chloride Level 100 mmol/L (98-107) Carbon Dioxide Level 27 mmol/L (21-32) Anion Gap 11 (6-14) Blood Urea Nitrogen 12 mg/dL (7-20) Creatinine 0.8 mg/dL (0.6-1.0) Estimated GFR (Cockcroft-Gault) 73.7 Glucose Level 185 mg/dL (70-99) Calcium Level 8.9 mg/dL (8.5-10.1) Review of Systems Review of Systems Denies shortness of breath Denies palpitations Denies chest pain Assessment and Plan Assessmemt and Plan Problems Medical Problems: (1) Hypokalemia Status: Acute (2) SVT (supraventricular tachycardia) Status: Acute Assessment: SVT Bronchitis Plan: Possible discharge today Discharge and disposition pending Discontinue IV levaquin, prescribed ciprofloxacin po BID Continue cardiac monitoring Continue DuoNebs Reviewed labs - continue to monitor PT/OT Pending referral to oncology social worker Prescribed cardizem and steroids Prescribed albuterol inhaler prn Comment Review of Relevant I have reviewed the following items doreen (where applicable) has been applied. Labs Laboratory Tests Test 07/17/18 04:15 07/18/18 06:35 White Blood Count 3.1 x10^3/uL (4.0-11.0) 5.1 x10^3/uL (4.0-11.0) Red Blood Count 5.24 x10^6/uL (3.50-5.40) 5.34 x10^6/uL (3.50-5.40) Hemoglobin 12.9 g/dL (12.0-15.5) 13.0 g/dL (12.0-15.5) Hematocrit 39.2 % (36.0-47.0) 39.4 % (36.0-47.0) Mean Corpuscular Volume 75 fL (79-100) 74 fL (79-100) Mean Corpuscular Hemoglobin 25 pg (25-35) 24 pg (25-35) Mean Corpuscular Hemoglobin Concent 33 g/dL (31-37) 33 g/dL (31-37) Red Cell Distribution Width 15.3 % (11.5-14.5) 15.5 % (11.5-14.5) Platelet Count 171 x10^3/uL (140-400) 188 x10^3/uL (140-400) Neutrophils (%) (Auto) 69 % (31-73) 78 % (31-73) Lymphocytes (%) (Auto) 24 % (24-48) 16 % (24-48) Monocytes (%) (Auto) 7 % (0-9) 6 % (0-9) Eosinophils (%) (Auto) 0 % (0-3) 0 % (0-3) Basophils (%) (Auto) 0 % (0-3) 0 % (0-3) Neutrophils # (Auto) 2.2 x10^3uL (1.8-7.7) 4.0 x10^3uL (1.8-7.7) Lymphocytes # (Auto) 0.7 x10^3/uL (1.0-4.8) 0.8 x10^3/uL (1.0-4.8) Monocytes # (Auto) 0.2 x10^3/uL (0.0-1.1) 0.3 x10^3/uL (0.0-1.1) Eosinophils # (Auto) 0.0 x10^3/uL (0.0-0.7) 0.0 x10^3/uL (0.0-0.7) Basophils # (Auto) 0.0 x10^3/uL (0.0-0.2) 0.0 x10^3/uL (0.0-0.2) Sodium Level 141 mmol/L (136-145) 138 mmol/L (136-145) Potassium Level 4.9 mmol/L (3.5-5.1) 4.2 mmol/L (3.5-5.1) Chloride Level 104 mmol/L (98-107) 100 mmol/L (98-107) Carbon Dioxide Level 25 mmol/L (21-32) 27 mmol/L (21-32) Anion Gap 12 (6-14) 11 (6-14) Blood Urea Nitrogen 12 mg/dL (7-20) 12 mg/dL (7-20) Creatinine 0.8 mg/dL (0.6-1.0) 0.8 mg/dL (0.6-1.0) Estimated GFR (Cockcroft-Gault) 73.7 73.7 Glucose Level 188 mg/dL (70-99) 185 mg/dL (70-99) Calcium Level 9.2 mg/dL (8.5-10.1) 8.9 mg/dL (8.5-10.1) Magnesium Level 2.1 mg/dL (1.8-2.4) Troponin I Quantitative < 0.017 ng/mL (0.000-0.055) Triglycerides Level 55 mg/dL (0-150) Cholesterol Level 163 mg/dL (0-200) LDL Cholesterol, Calculated 104 mg/dL (0-100) VLDL Cholesterol, Calculated 11 mg/dL (0-40) Non-HDL Cholesterol Calculated 115 mg/dL (0-129) HDL Cholesterol 48 mg/dL (40-60) Cholesterol/HDL Ratio 3.4 Laboratory Tests Test 07/18/18 06:35 White Blood Count 5.1 x10^3/uL (4.0-11.0) Red Blood Count 5.34 x10^6/uL (3.50-5.40) Hemoglobin 13.0 g/dL (12.0-15.5) Hematocrit 39.4 % (36.0-47.0) Mean Corpuscular Volume 74 fL (79-100) Mean Corpuscular Hemoglobin 24 pg (25-35) Mean Corpuscular Hemoglobin Concent 33 g/dL (31-37) Red Cell Distribution Width 15.5 % (11.5-14.5) Platelet Count 188 x10^3/uL (140-400) Neutrophils (%) (Auto) 78 % (31-73) Lymphocytes (%) (Auto) 16 % (24-48) Monocytes (%) (Auto) 6 % (0-9) Eosinophils (%) (Auto) 0 % (0-3) Basophils (%) (Auto) 0 % (0-3) Neutrophils # (Auto) 4.0 x10^3uL (1.8-7.7) Lymphocytes # (Auto) 0.8 x10^3/uL (1.0-4.8) Monocytes # (Auto) 0.3 x10^3/uL (0.0-1.1) Eosinophils # (Auto) 0.0 x10^3/uL (0.0-0.7) Basophils # (Auto) 0.0 x10^3/uL (0.0-0.2) Sodium Level 138 mmol/L (136-145) Potassium Level 4.2 mmol/L (3.5-5.1) Chloride Level 100 mmol/L (98-107) Carbon Dioxide Level 27 mmol/L (21-32) Anion Gap 11 (6-14) Blood Urea Nitrogen 12 mg/dL (7-20) Creatinine 0.8 mg/dL (0.6-1.0) Estimated GFR (Cockcroft-Gault) 73.7 Glucose Level 185 mg/dL (70-99) Calcium Level 8.9 mg/dL (8.5-10.1) Medications Current Medications Adenosine (Adenocard) 6 mg STK-MED ONCE IV ; Start 07/15/18 at 18:10; Stop at 18:11; Status DC Aspirin (Milana Aspirin) 325 mg 1X ONCE PO Last administered on 07/15/18at 18:42 ; Start 07/15/18 at 18:15; Stop 07/15/18 at 18:16; Status DC Sodium Chloride 1,000 ml @ 1,000 mls/hr 1X ONCE IV Last administered on at 18:14; Start 07/15/18 at 18:15; Stop 07/15/18 at 19:14; Status DC Adenosine (Adenocard) 6 mg 1X ONCE IV Last administered on 07/15/18at 18:17; Start 07/15/18 at 18:15; Stop 07/15/18 at 18:16; Status DC Potassium Chloride (Klor-Con) 40 meq 1X ONCE PO Last administered on 07/15/18at 19:45; Start 07/15/18 at 19:45; Stop 07/15/18 at 19:46; Status DC Dexamethasone Sodium Phosphate (Decadron) 10 mg 1X ONCE IV Last administered on 07/15/18at 19:45; Start 07/15/18 at 19:45; Stop 07/15/18 at 19:46; Status DC Levalbuterol HCl (Xopenex) 2.5 mg 1X ONCE NEB Last administered on 07/15/18at 20 :05; Start 07/15/18 at 20:15; Stop 07/15/18 at 20:16; Status DC Influenza Virus Vaccine (Afluria Trivalent [id number] Syringe) 0.5 ml ONCE ONCE VAX IM ; Start 07/16/18 at 09:00; Stop 07/16/18 at 09:01; Status DC Levofloxacin/ Dextrose 100 ml @ 100 mls/hr Q24H IV Last administered on 13:52; Start 07/16/18 at 13:00 Methylprednisolone Sodium Succinate (SOLU-Medrol 40MG VIAL) 30 mg BID IV Last administered on 07/18/18 08:41; Start 07/16/18 at 13:00 Albuterol/ Ipratropium (Duoneb) 3 ml RTQID NEB Last administered on 07/18/18 11 :09; Start 07/16/18 at 12:30 Diltiazem HCl (Cardizem 24hr Cd) 180 mg DAILY PO Last administered on 07/18/18 08:39; Start 07/16/18 at 14:00 Lactobacillus Rhamnosus (Culturelle) 1 cap BID PO Last administered on 08:41; Start 07/17/18 at 09:00 Active Scripts Active Reported Proair Hfa (Albuterol Sulfate) 8.5 Gm Hfa.aer.ad 1 Puff INH PRN Q6HRS PRN Cipro (Ciprofloxacin Hcl) 500 Mg Tablet 1 Tab PO BID 7 Days Medrol (Methylprednisolone) 4 Mg Tab.ds.pk 1 Pkg PO UD Cardizem Cd (Diltiazem Hcl) 180 Mg Cap.er.24h 180 Mg PO DAILY Vitals/I & O Vital Sign - Last 24 Hours 07/17/18 07/17/18 07/17/18 07/17/18 15:00 16:42 19:15 19:25 Temp 98.2 97.6 98.2 97.6 Pulse 72 73 Resp 16 20 B/P (MAP) 156/84 (108) 147/90 (109) Pulse Ox 97 94 O2 Delivery Room Air Room Air Room Air Room Air 07/17/18 07/17/18 07/18/18 07/18/18 20:25 23:15 03:05 07:00 Temp 97.8 97.7 97.7 97.8 97.7 97.7 Pulse 74 72 66 Resp 18 18 18 B/P (MAP) 152/94 (113) 144/95 (111) 166/87 (113) Pulse Ox 97 96 96 94 O2 Delivery Room Air Room Air Room Air Room Air 07/18/18 07/18/18 07/18/18 07/18/18 07:35 08:00 08:39 11:09 Pulse 66 B/P (MAP) 166/87 Pulse Ox 98 O2 Delivery Room Air Room Air Room Air 07/18/18 11:09 Temp 98.0 98.0 Pulse 77 Resp 18 B/P (MAP) 151/77 (101) Pulse Ox 96 O2 Delivery Room Air Intake and Output 07/17/18 07/17/18 07/18/18 15:00 23:00 07:00 Intake Total 860 ml 240 ml 200 ml Output Total 400 ml 300 ml 700 ml Balance 460 ml -60 ml -500 ml JULIETA FREIRE III DO Jul 18, 2018 12:41
--- NOTE | 2018-07-18 17:07 | PDOC ---
PROGRESS NOTES Subjective Subjective Patient seen and examined She reports feeling better today. Objective Objective Vital Signs Date Time Temp Pulse Resp B/P (MAP) Pulse Ox O2 Delivery O2 Flow Rate FiO2 07/18/18 11:09 98.0 77 18 151/77 (101) 96 Room Air 98.0 07/17/18 12:08 2.0 Intake and Output 07/18/18 07:00 Intake Total 1300 ml Output Total 1400 ml Balance -100 ml Intake Oral 1300 ml Output Urine Total 1400 ml # Voids 2 Physical Exam Abdomen: Normal bowel sounds Heart: Regular rate General: mild distress Lungs: Other (slightly decreased breath sounds) Assessment Assessment Problems Medical Problems: (1) Hypokalemia Status: Acute (2) SVT (supraventricular tachycardia) Status: Acute 1. Asthma/bronchitis. Patient is improving on present treatment. 2. Paroxysmal supraventricular tachycardia. Probably secondary to the patient's pulmonary condition. Will not use beta blockers in the setting of her pulmonary issues. On calcium channel blockers. Rhythm has been stable. 3. Hypokalemia. Replaced. Comment Review of Relevant I have reviewed the following items doreen (where applicable) has been applied. Labs Laboratory Tests Test 07/17/18 04:15 07/18/18 06:35 White Blood Count 3.1 x10^3/uL (4.0-11.0) 5.1 x10^3/uL (4.0-11.0) Red Blood Count 5.24 x10^6/uL (3.50-5.40) 5.34 x10^6/uL (3.50-5.40) Hemoglobin 12.9 g/dL (12.0-15.5) 13.0 g/dL (12.0-15.5) Hematocrit 39.2 % (36.0-47.0) 39.4 % (36.0-47.0) Mean Corpuscular Volume 75 fL (79-100) 74 fL (79-100) Mean Corpuscular Hemoglobin 25 pg (25-35) 24 pg (25-35) Mean Corpuscular Hemoglobin Concent 33 g/dL (31-37) 33 g/dL (31-37) Red Cell Distribution Width 15.3 % (11.5-14.5) 15.5 % (11.5-14.5) Platelet Count 171 x10^3/uL (140-400) 188 x10^3/uL (140-400) Neutrophils (%) (Auto) 69 % (31-73) 78 % (31-73) Lymphocytes (%) (Auto) 24 % (24-48) 16 % (24-48) Monocytes (%) (Auto) 7 % (0-9) 6 % (0-9) Eosinophils (%) (Auto) 0 % (0-3) 0 % (0-3) Basophils (%) (Auto) 0 % (0-3) 0 % (0-3) Neutrophils # (Auto) 2.2 x10^3uL (1.8-7.7) 4.0 x10^3uL (1.8-7.7) Lymphocytes # (Auto) 0.7 x10^3/uL (1.0-4.8) 0.8 x10^3/uL (1.0-4.8) Monocytes # (Auto) 0.2 x10^3/uL (0.0-1.1) 0.3 x10^3/uL (0.0-1.1) Eosinophils # (Auto) 0.0 x10^3/uL (0.0-0.7) 0.0 x10^3/uL (0.0-0.7) Basophils # (Auto) 0.0 x10^3/uL (0.0-0.2) 0.0 x10^3/uL (0.0-0.2) Sodium Level 141 mmol/L (136-145) 138 mmol/L (136-145) Potassium Level 4.9 mmol/L (3.5-5.1) 4.2 mmol/L (3.5-5.1) Chloride Level 104 mmol/L (98-107) 100 mmol/L (98-107) Carbon Dioxide Level 25 mmol/L (21-32) 27 mmol/L (21-32) Anion Gap 12 (6-14) 11 (6-14) Blood Urea Nitrogen 12 mg/dL (7-20) 12 mg/dL (7-20) Creatinine 0.8 mg/dL (0.6-1.0) 0.8 mg/dL (0.6-1.0) Estimated GFR (Cockcroft-Gault) 73.7 73.7 Glucose Level 188 mg/dL (70-99) 185 mg/dL (70-99) Calcium Level 9.2 mg/dL (8.5-10.1) 8.9 mg/dL (8.5-10.1) Magnesium Level 2.1 mg/dL (1.8-2.4) Troponin I Quantitative < 0.017 ng/mL (0.000-0.055) Triglycerides Level 55 mg/dL (0-150) Cholesterol Level 163 mg/dL (0-200) LDL Cholesterol, Calculated 104 mg/dL (0-100) VLDL Cholesterol, Calculated 11 mg/dL (0-40) Non-HDL Cholesterol Calculated 115 mg/dL (0-129) HDL Cholesterol 48 mg/dL (40-60) Cholesterol/HDL Ratio 3.4 Laboratory Tests Test 07/18/18 06:35 White Blood Count 5.1 x10^3/uL (4.0-11.0) Red Blood Count 5.34 x10^6/uL (3.50-5.40) Hemoglobin 13.0 g/dL (12.0-15.5) Hematocrit 39.4 % (36.0-47.0) Mean Corpuscular Volume 74 fL (79-100) Mean Corpuscular Hemoglobin 24 pg (25-35) Mean Corpuscular Hemoglobin Concent 33 g/dL (31-37) Red Cell Distribution Width 15.5 % (11.5-14.5) Platelet Count 188 x10^3/uL (140-400) Neutrophils (%) (Auto) 78 % (31-73) Lymphocytes (%) (Auto) 16 % (24-48) Monocytes (%) (Auto) 6 % (0-9) Eosinophils (%) (Auto) 0 % (0-3) Basophils (%) (Auto) 0 % (0-3) Neutrophils # (Auto) 4.0 x10^3uL (1.8-7.7) Lymphocytes # (Auto) 0.8 x10^3/uL (1.0-4.8) Monocytes # (Auto) 0.3 x10^3/uL (0.0-1.1) Eosinophils # (Auto) 0.0 x10^3/uL (0.0-0.7) Basophils # (Auto) 0.0 x10^3/uL (0.0-0.2) Sodium Level 138 mmol/L (136-145) Potassium Level 4.2 mmol/L (3.5-5.1) Chloride Level 100 mmol/L (98-107) Carbon Dioxide Level 27 mmol/L (21-32) Anion Gap 11 (6-14) Blood Urea Nitrogen 12 mg/dL (7-20) Creatinine 0.8 mg/dL (0.6-1.0) Estimated GFR (Cockcroft-Gault) 73.7 Glucose Level 185 mg/dL (70-99) Calcium Level 8.9 mg/dL (8.5-10.1) Medications Current Medications Adenosine (Adenocard) 6 mg STK-MED ONCE IV ; Start 07/15/18 at 18:10; Stop at 18:11; Status DC Aspirin (Milana Aspirin) 325 mg 1X ONCE PO Last administered on 07/15/18at 18:42 ; Start 07/15/18 at 18:15; Stop 07/15/18 at 18:16; Status DC Sodium Chloride 1,000 ml @ 1,000 mls/hr 1X ONCE IV Last administered on at 18:14; Start 07/15/18 at 18:15; Stop 07/15/18 at 19:14; Status DC Adenosine (Adenocard) 6 mg 1X ONCE IV Last administered on 07/15/18at 18:17; Start 07/15/18 at 18:15; Stop 07/15/18 at 18:16; Status DC Potassium Chloride (Klor-Con) 40 meq 1X ONCE PO Last administered on 07/15/18at 19:45; Start 07/15/18 at 19:45; Stop 07/15/18 at 19:46; Status DC Dexamethasone Sodium Phosphate (Decadron) 10 mg 1X ONCE IV Last administered on 07/15/18at 19:45; Start 07/15/18 at 19:45; Stop 07/15/18 at 19:46; Status DC Levalbuterol HCl (Xopenex) 2.5 mg 1X ONCE NEB Last administered on 07/15/18at 20 :05; Start 07/15/18 at 20:15; Stop 07/15/18 at 20:16; Status DC Influenza Virus Vaccine (Afluria Trivalent [id number] Syringe) 0.5 ml ONCE ONCE VAX IM ; Start 07/16/18 at 09:00; Stop 07/16/18 at 09:01; Status DC Levofloxacin/ Dextrose 100 ml @ 100 mls/hr Q24H IV Last administered on 13:52; Start 07/16/18 at 13:00; Stop 07/18/18 at 13:57; Status DC Methylprednisolone Sodium Succinate (SOLU-Medrol 40MG VIAL) 30 mg BID IV Last administered on 07/18/18 08:41; Start 07/16/18 at 13:00; Stop 07/18/18 at 13:57; Status DC Albuterol/ Ipratropium (Duoneb) 3 ml RTQID NEB Last administered on 07/18/18at 11 :09; Start 07/16/18 at 12:30; Stop 07/18/18 at 13:57; Status DC Diltiazem HCl (Cardizem 24hr Cd) 180 mg DAILY PO Last administered on 07/18/18at 08:39; Start 07/16/18 at 14:00; Stop 07/18/18 at 13:57; Status DC Lactobacillus Rhamnosus (Culturelle) 1 cap BID PO Last administered on 08:41; Start 07/17/18 at 09:00; Stop 07/18/18 at 13:57; Status DC Active Scripts Active Reported Proair Hfa (Albuterol Sulfate) 8.5 Gm Hfa.aer.ad 1 Puff INH PRN Q6HRS PRN Cipro (Ciprofloxacin Hcl) 500 Mg Tablet 1 Tab PO BID 7 Days Medrol (Methylprednisolone) 4 Mg Tab.ds.pk 1 Pkg PO UD Cardizem Cd (Diltiazem Hcl) 180 Mg Cap.er.24h 180 Mg PO DAILY Vitals/I & O Vital Sign - Last 24 Hours 07/17/18 07/17/18 07/17/18 07/17/18 19:15 19:25 20:25 23:15 Temp 97.6 97.8 97.6 97.8 Pulse 73 74 Resp 20 18 B/P (MAP) 147/90 (109) 152/94 (113) Pulse Ox 94 97 96 O2 Delivery Room Air Room Air Room Air Room Air 07/18/18 07/18/18 07/18/1807/18/19 03:05 07:00 07:35 08:00 Temp 97.7 97.7 97.7 97.7 Pulse 72 66 Resp 18 18 B/P (MAP) 144/95 (111) 166/87 (113) Pulse Ox 96 94 98 O2 Delivery Room Air Room Air Room Air Room Air 07/18/18 07/18/18 07/18/18 08:39 11:09 11:09 Temp 98.0 98.0 Pulse 66 77 Resp 18 B/P (MAP) 166/87 151/77 (101) Pulse Ox 96 O2 Delivery Room Air Room Air Intake and Output 07/17/18 07/17/18 07/18/18 15:00 23:00 07:00 Intake Total 860 ml 240 ml 200 ml Output Total 400 ml 300 ml 700 ml Balance 460 ml -60 ml -500 ml DAISY HANCOCK MD Jul 18, 2018 17:07
--- NOTE | 2018-07-18 18:23 | DS ---
DATE OF DISCHARGE: 07/18/2018 ADMISSION DIAGNOSES: 1. Supraventricular tachycardia. 2. Bronchitis. DISCHARGE DIAGNOSES: 1. Resolving supraventricular tachycardia. 2. Resolving bronchitis. 3. Continued tobacco abuse. 4. Asthma. 5. Hypertension. 6. Tubal . 7. Cholecystectomy. 8. Hysterectomy. 9. Right oophorectomy. CONSULTS: Cardiology. PROCEDURES: None. HOSPITAL COURSE: The patient is a pleasant middle-aged female who smokes and basically presented with chest pain and was noted to be in SVT. She was given adenosine, that seems to have resolved now. Her rates have been fine. We got her on Cardizem-CD 180 p.o. q. day. We also went ahead and treated her for bronchitis. She had a harsh cough, I have got her on Levaquin and albuterol and Solu-Medrol. This morning when I saw her and examined her, she looked great. We plan to discharge if okay with consultants. DISPOSITION: Home. ACTIVITY: As tolerated. DIET: Low sodium. MEDICATIONS: Please see the MRAD. I did leave 4 prescriptions. TOTAL TIME: 32 minutes. JULIETA FREIRE DO DR: ROSANNA/humberto JOB#: [id number] / [id number]
[2018-07-21] MEDS ORDERED: PRED20TA PO (13:08)
[2018-07-21] MEDS ORDERED: METO50TA6 PO (13:08)
== END 2018-07-18 13:15 | disposition home or self-care (01) | DRG 202 ==
LOC: ER 18:00 → 2 NORTH 19:47
PROVIDERS: ADMIT Internal Medicine; ATTEND Internal Medicine
DX: J40 Bronchitis, not specified as acute or chronic (principal); I47.1 Supraventricular tachycardia; M62.82 Rhabdomyolysis; E87.6 Hypokalemia; F17.210 Nicotine dependence, cigarettes, uncomplicated; I10 Essential (primary) hypertension; F12.90 Cannabis use, unspecified, uncomplicated; Z90.710 Acquired absence of both cervix and uterus; Z90.721 Acquired absence of ovaries, unilateral; Z82.49 Family history of ischemic heart disease and other diseases of the circulatory system; Z90.49 Acquired absence of other specified parts of digestive tract; Z88.8 Allergy status to other drugs, medicaments and biological substances; Z88.0 Allergy status to penicillin
CPT/HCPCS: 36415; 71045; 80048; 80053; 80061; 82553; 83735; 83880; 84484; 85025; 85610; 85730; 93005; 94640; 94760; 96361; 96365; 96375; J0153; J1100; J1956; J2920; J7030; J7620; 99285-25

== ENCOUNTER 2018-07-20 13:13 | Observation (INO) | payer SELFPAY ==
[~2018-07-20] VITALS: Ht 170.2 cm; Wt 87.7 kg
[~2018-07-20 13:13] MED LIST changes: +ALBU2.5V8 INH; +CIPR500T94 PO; +DILT180C2 PO; +METH4TAB2 PO
[2018-07-20] MEDS ORDERED: ADENOSINE 6 MG/2 ML VIAL. IV ONE ×3 (13:27→15:45)
[2018-07-20] MEDS ORDERED: IPRATRPIUM/ALBUTEROL 0.5/2.5MG 3 ML NEBU. NEB ONE (13:30)
[2018-07-20 13:40] LABS: BASO # 0.1 x10^3/uL (0.0-0.2); BASO % 1 % (0-3); EOS # 0.1 x10^3/uL (0.0-0.7); EOS % 1 % (0-3); HEMOGLOBIN 14.8 g/dL (12.0-15.5); LYMPH # 4.6 x10^3/uL (1.0-4.8); LYMPH % 38 % (24-48); MEAN CORPUSCULAR HEMOGLOBIN 25 pg (25-35); MEAN CORPUSCULAR HGB CONC 34 g/dL (31-37); MEAN CORPUSCULAR VOLUME 74 fL (79-100); MONO # 0.8 x10^3/uL (0.0-1.1); MONO % 7 % (0-9); NEUT # 6.5 x10^3uL (1.8-7.7); NEUT % 54 % (31-73); PLATELET COUNT 290 x10^3/uL (140-400); RED BLOOD COUNT 5.98 x10^6/uL (3.50-5.40); RED CELL DISTRIBUTION WIDTH 15.5 % (11.5-14.5); WHITE BLOOD COUNT 12.1 x10^3/uL (4.0-11.0)
[2018-07-20] MEDS ORDERED: methylPREDNISolone SOD SUCC PF 125 MG/2 ML VIAL. IV ONE (13:45)
[2018-07-20 13:52] LABS: PROTHROMBIN TIME PATIENT 13.2 SEC (11.7-14.0)
[2018-07-20 13:55] LABS: CALCIUM 8.6 mg/dL (8.5-10.1); CREATININE 1.1 mg/dL (0.6-1.0); POTASSIUM 3.6 mmol/L (3.5-5.1)
[2018-07-20 14:01] LABS: ALBUMIN 3.4 g/dL (3.4-5.0); ALBUMIN/GLOBULIN RATIO 0.8 (1.0-1.7); MAGNESIUM 2.1 mg/dL (1.8-2.4); TOTAL BILIRUBIN 0.3 mg/dL (0.2-1.0); TOTAL PROTEIN 7.7 g/dL (6.4-8.2)
[2018-07-20 14:09] LABS: FREE T4 1.03 ng/dL (0.76-1.46); THYROID STIM HORMONE (TSH) 1.639 uIU/mL (0.358-3.74)
--- NOTE | 2018-07-20 14:19 | RAD ---
PROCEDURE: PORTABLE CHEST 1V CLINICAL INDICATION: SOA COMPARISON: 07/15/2018 FINDINGS: No pneumothorax identified. Cardiac and mediastinal contours unremarkable. No pulmonary consolidation or acute airspace disease. No acute osseous abnormalities identified. IMPRESSION: No pulmonary consolidation or acute airspace disease. Electronically signed by: Edmund Butt DO (07/20/2018 2:13 PM) [id number]
--- NOTE | 2018-07-20 15:47 | PHYS DOC ---
Past Medical History Past Medical History: Asthma, Hypertension, Other Additional Past Medical Histor: Tubal , SVT Past Surgical History: Cholecystectomy, Hysterectomy Additional Past Surgical Histo: R oophorectomy Alcohol Use: Occasionally Drug Use: None Adult General Chief Complaint Chief Complaint: RAPID HEART RATE HPI HPI Patient is a 58 year old female with history of asthma, smoker presented ER today for rapid heart rate, having dizziness, trouble breathing about 30 minutes ago while she was on her way home from work. Patient was admitted here last week for ASTHMA AND NEW ONSET SVT. Patient was seen by milk powder grinder, was discharged home with cardizem CD 180 mg daily, Medro dopak, cipro and ALbuterol MDI. Patient did not buy these medications because she does not have the money yet. She continues to smoke. Review of Systems Review of Systems Constitutional: Denies fever or chills [] Eyes: Denies change in visual acuity, redness, or eye pain [] HENT: Denies nasal congestion or sore throat [] Respiratory: Positive for cough and shortness of breath [] Cardiovascular: Positive for rapid heart rate GI: Denies abdominal pain, nausea, vomiting, bloody stools or diarrhea [] : Denies dysuria or hematuria [] Musculoskeletal: Denies back pain or joint pain [] Integument: Denies rash or skin lesions [] Neurologic: Denies headache, focal weakness or sensory changes [] Endocrine: Denies polyuria or polydipsia [] All other systems were reviewed and found to be within normal limits, except as documented in this note. Current Medications Current Medications Current Medications Medications (Trade) Dose Ordered Sig/Baljinder Start Time Stop Time Status Last Admin Dose Admin Acetaminophen (Tylenol) 650 mg PRN Q6HRS PRN 07/20/18 16:30 Adenosine (Adenocard) 12 mg 1X ONCE 07/20/18 15:45 07/20/18 15:46 DC 07/20/18 15:37 12 MG Albuterol Sulfate (Ventolin Neb Soln) 2.5 mg PRN Q6HRS PRN 07/20/18 16:30 Albuterol/ Ipratropium (Duoneb) 3 ml RTQID 07/20/18 20:00 07/21/18 19:59 Diltiazem HCl (Cardizem 24hr Cd) 120 mg DAILY 07/21/18 09:00 Doxycycline Hyclate 100 mg/ Dextrose 100 ml @ 50 mls/hr BID 07/20/18 17:30 Lactobacillus Rhamnosus (Culturelle) 1 cap BID 07/20/18 21:00 Lactulose (Lactulose) 20 gm PRN Q12HR PRN 07/20/18 16:30 Magnesium Hydroxide (Milk Of Magnesia) 2,400 mg PRN Q12HR PRN 07/20/18 16:30 Methylprednisolone Sodium Succinate (SOLU-Medrol 125MG VIAL) 125 mg 1X ONCE 07/20/18 13:45 07/20/18 13:46 DC 07/20/18 14:03 125 MG Ondansetron HCl (Zofran) 4 mg PRN Q6HRS PRN 07/20/18 16:30 Potassium Chloride (Klor-Con) 40 meq 1X ONCE 07/20/18 16:45 07/20/18 16:46 DC 07/20/18 16:51 40 MEQ Prednisone (Prednisone) 20 mg DAILY 07/21/18 09:00 Prochlorperazine Edisylate (Compazine) 10 mg PRN Q6HRS PRN 07/20/18 16:30 Ringer's Solution 1,000 ml @ 100 mls/hr Q10H 07/20/18 17:00 07/21/18 02:59 Senna/Docusate Sodium (Senna Plus) 1 tab BID 07/20/18 21:00 Zolpidem Tartrate (Ambien) 5 mg PRN QHS PRN 07/20/18 16:30 Allergies Allergies Allergies Coded Allergies Type Severity Reaction Last Updated Verified Penicillins Allergy Intermediate 07/16/18 Yes codeine Adverse Reaction Mild constipation 07/16/18 Yes morphine Adverse Reaction Mild Nausea 06/24/16 Yes Physical Exam Physical Exam Constitutional: Well developed, well nourished, no acute distress, non-toxic appearance. [] HENT: Normocephalic, atraumatic, bilateral external ears normal, oropharynx moist, no oral exudates, nose normal. [] Eyes: PERRLA, EOMI, conjunctiva normal, no discharge. [] Neck: Normal range of motion, no tenderness, supple, no stridor. [] Cardiovascular: Tachycardia, no murmur [] Lungs & Thorax: diffuse wheezing with decreased air movement in all lung hay. Abdomen: Bowel sounds normal, soft, no tenderness, no masses, no pulsatile masses. [] Skin: Warm, dry, no erythema, no rash. [] Back: No tenderness, no CVA tenderness. [] Extremities: No tenderness, no cyanosis, no clubbing, ROM intact, no edema. [] Neurologic: Alert and oriented X 3, normal motor function, normal sensory function, no focal deficits noted. [] Psychologic: Affect normal, judgement normal, mood normal. [] Current Patient Data Vital Signs Vital Signs Date Time Temp Pulse Resp B/P (MAP) Pulse Ox O2 Delivery O2 Flow Rate FiO2 07/20/18 15:51 96 22 123/95 (104) 98 Room Air 07/20/18 13:41 98.2 98.2 Lab Values Laboratory Tests Test 07/20/18 13:25 White Blood Count 12.1 x10^3/uL (4.0-11.0) H Red Blood Count 5.98 x10^6/uL (3.50-5.40) H Hemoglobin 14.8 g/dL (12.0-15.5) Hematocrit 44.0 % (36.0-47.0) Mean Corpuscular Volume 74 fL (79-100) L Mean Corpuscular Hemoglobin 25 pg (25-35) Mean Corpuscular Hemoglobin Concent 34 g/dL (31-37) Red Cell Distribution Width 15.5 % (11.5-14.5) H Platelet Count 290 x10^3/uL (140-400) Neutrophils (%) (Auto) 54 % (31-73) Lymphocytes (%) (Auto) 38 % (24-48) Monocytes (%) (Auto) 7 % (0-9) Eosinophils (%) (Auto) 1 % (0-3) Basophils (%) (Auto) 1 % (0-3) Neutrophils # (Auto) 6.5 x10^3uL (1.8-7.7) Lymphocytes # (Auto) 4.6 x10^3/uL (1.0-4.8) Monocytes # (Auto) 0.8 x10^3/uL (0.0-1.1) Eosinophils # (Auto) 0.1 x10^3/uL (0.0-0.7) Basophils # (Auto) 0.1 x10^3/uL (0.0-0.2) Prothrombin Time 13.2 SEC (11.7-14.0) Prothrombin Time INR 1.0 (0.8-1.1) PTT 24 SEC (24-38) Sodium Level 142 mmol/L (136-145) Potassium Level 3.6 mmol/L (3.5-5.1) Chloride Level 103 mmol/L (98-107) Carbon Dioxide Level 26 mmol/L (21-32) Anion Gap 13 (6-14) Blood Urea Nitrogen 21 mg/dL (7-20) H Creatinine 1.1 mg/dL (0.6-1.0) H Estimated GFR (Cockcroft-Gault) 51.0 BUN/Creatinine Ratio 19 (6-20) Glucose Level 151 mg/dL (70-99) H Calcium Level 8.6 mg/dL (8.5-10.1) Magnesium Level 2.1 mg/dL (1.8-2.4) Total Bilirubin 0.3 mg/dL (0.2-1.0) Aspartate Amino Transferase (AST) 33 U/L (15-37) Alanine Aminotransferase (ALT) 54 U/L (14-59) Alkaline Phosphatase 88 U/L (46-116) Creatine Kinase 84 U/L (26-192) Creatine Kinase MB (Mass) 1.1 ng/mL (0.0-3.6) Creatine Kinase MB Relative Index 1.3 % (0-4) Troponin I Quantitative < 0.017 ng/mL (0.000-0.055) HU-Wwe-T-Type Natriuretic Peptide 135 pg/mL (0-124) H Total Protein 7.7 g/dL (6.4-8.2) Albumin 3.4 g/dL (3.4-5.0) Albumin/Globulin Ratio 0.8 (1.0-1.7) L Thyroid Stimulating Hormone (TSH) 1.639 uIU/mL (0.358-3.74) Free Thyroxine 1.03 ng/dL (0.76-1.46) Laboratory Tests 07/20/18 13:25 Laboratory Tests 07/20/18 13:25 EKG EKG EKG WAS READ BY THIS PHYSICIAN AT 1325 SHOWN SVT, RATE OF 179 BPM, NO STEMI. Patient was given 6 mg Adenosine IVP, she was converted to sinus rhythm, repeat EKG was read by this physician at 1334 with rate of 108, sinus tachycardia, NO STEMI. Patient was given 180 mg Cardizem CD PO, DUONEB TREATMENT. Patient felt much better. Patient was observed in the ER for more than 2 hours, she started feeling dizzy and heart rate fast again, rhythm on monitor with rate of 188 bpm, consistent with SVT. Patient was given 12 mg Adenosine IVP. She was converted to NSR, RATE OF 94 BPM. Radiology/Procedures Radiology/Procedures [][facility] [address] [place] [address] IMAGING REPORT Signed PATIENT: ART MITCHELL ACCOUNT: [id number] : 1960 LOCATION: ER AGE: 58 SEX: F EXAM STATUS: PRE ER ORD. PHYSICIAN: NADIR MONTOYA DO REASON: soa PROCEDURE: PORTABLE CHEST 1V PROCEDURE: PORTABLE CHEST 1V CLINICAL INDICATION: SOA COMPARISON: 07/15/2018 FINDINGS: No pneumothorax identified. Cardiac and mediastinal contours unremarkable. No pulmonary consolidation or acute airspace disease. No acute osseous abnormalities identified. IMPRESSION: No pulmonary consolidation or acute airspace disease. Electronically signed by: Edmund Butt DO (07/20/2018 2:13 PM) [id number] DICTATED and SIGNED BY: EDMUND BUTT DO DATE: 07/20/18 1413 Course & Med Decision Making Course & Med Decision Making Pertinent Labs and Imaging studies reviewed. (See chart for details) [] Dragon Disclaimer Dragon Disclaimer This electronic medical record was generated, in whole or in part, using a voice recognition dictation system. Departure Departure Impression: Primary Impression: SVT (supraventricular tachycardia) Additional Impression: Asthmatic bronchitis Disposition: 09 ADMITTED INPATIENT Admitting Physician: Other (DR. WALKER MADSEN) Condition: IMPROVED Referrals: NO PCP (PCP) Problem Qualifiers NADIR MONTOYA DO Jul 20, 2018 15:47
--- NOTE | 2018-07-20 16:13 | EKG ---
[facility] [address] [place] [address] Test Date: 2018-07-20 Test Time: 13:22:25 Pat Name: ART MITCHELL Department: Room: Gender: F Mds Coordinator: : 1960 Requested By: NADIR MONTOYA Order Number: [id number] Reading MD: Naseem Powell MD Measurements Intervals [place] Rate: 179 P: [place]: QRS: 47 QRSD: 66 T: -90 QT: 250 QTc: 439 Interpretive Statements SUPRAVENTRICULAR TACHYCARDIA SUBENDOCARDIAL ISCHEMIA Electronically Signed On 07-21-2018 11:10:25 MEDICAL RECORDS ADMINISTRATOR by Naseem Powell MD
--- NOTE | 2018-07-20 16:15 | EKG ---
[facility] [address] [place] [address] Test Date: 2018-07-20 Test Time: 13:33:52 Pat Name: ART MITCHELL Department: Room: Gender: F Brick Tosser: : 1960 Requested By: NADIR MONTOYA Order Number: [id number] Reading MD: Naseem Powell MD Measurements Intervals [place] Rate: 108 P: 51 IN: 140 QRS: 45 QRSD: 80 T: 66 QT: 298 QTc: 403 Interpretive Statements SINUS TACHYCARDIA Electronically Signed On 07-21-2018 11:10:31 FOAM DISPENSER by Naseem Powell MD
--- NOTE | 2018-07-20 16:17 | PDOC1 ---
History and Physical Date of Admission Date of Admission DATE: 07/20/18 TIME: 16:14 Identification/Chief Complaint Chief Complaint Rapid heart rate Source Source: Chart review, Patient History of Present Illness History of Present Illness 58 year old female with history of asthma, smoker presented ER today for rapid heart rate, having dizziness, trouble breathing about 30 minutes ago while she was on her way home from work. 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 She was given adenosine 6mg which nearly abated her SVT, required another 12mg with some short term improvement. Still short of breath, called for admission. Past Medical History Cardiovascular: HTN, Other (SVT) Pulmonary: Asthma, Bronchitis Past Surgical History Past Surgical History: Cholecystectomy, Hysterectomy, Other Family History Family History: Heart Disease Social History ALCOHOL: occassional Drugs: Marijuana Current Problem List Problem List Problems Medical Problems: (1) Asthmatic bronchitis Status: Acute (2) SVT (supraventricular tachycardia) Status: Acute Current Medications Current Medications Current Medications Albuterol/ Ipratropium (Duoneb) 3 ml 1X ONCE NEB Last administered on at 14:13; Start 07/20/18 at 13:30; Stop 07/20/18 at 13:31; Status DC Adenosine (Adenocard) 6 mg 1X ONCE IV Last administered on 07/20/18at 13:32; Start 07/20/18 at 13:30; Stop 07/20/18 at 13:31; Status DC Adenosine (Adenocard) 6 mg STK-MED ONCE IV ; Start 07/20/18 at 13:27; Stop at 13:28; Status DC Diltiazem HCl (Cardizem 24hr Cd) 180 mg DAILY PO Last administered on 07/20/18at 14:03; Start 07/20/18 at 14:00 Methylprednisolone Sodium Succinate (SOLU-Medrol 125MG VIAL) 125 mg 1X ONCE IV Last administered on 07/20/18at 14:03; Start 07/20/18 at 13:45; Stop 07/20/18 at 13:46; Status DC Adenosine (Adenocard) 12 mg 1X ONCE IV Last administered on 07/20/18at 15:37; Start 07/20/18 at 15:45; Stop 07/20/18 at 15:46; Status DC Albuterol/ Ipratropium (Duoneb) 3 ml RTQID NEB ; Start 07/20/18 at 20:00; Stop at 19:59 Active Scripts Active Reported Proair Hfa (Albuterol Sulfate) 8.5 Gm Hfa.aer.ad 1 Puff INH PRN Q6HRS PRN Cipro (Ciprofloxacin Hcl) 500 Mg Tablet 1 Tab PO BID 7 Days Medrol (Methylprednisolone) 4 Mg Tab.ds.pk 1 Pkg PO UD Cardizem Cd (Diltiazem Hcl) 180 Mg Cap.er.24h 180 Mg PO DAILY Allergies Allergies: Coded Allergies: Penicillins (Verified Allergy, Intermediate, 07/16/18) codeine (Verified Adverse Reaction, Mild, constipation, 07/16/18) morphine (Verified Adverse Reaction, Mild, Nausea, 06/24/16) ROS General: YES: Fatigue, Malaise; No: Chills, Night Sweats, Appetite, Other PSYCHOLOGICAL ROS: YES: Anxiety; No: Behavioral Disorder, Concentration difficultie, Decreased libido, Depression, Disorientation, Hallucinations, Hostility, Irritablity, Memory difficulties, Mood Swings, Obsessive thoughts, Physical abuse, Sexual abuse, Sleep disturbances, Suicidal ideation, Other Eyes: No Blurry vision, No Decreased vision, No Double vision, No Dry eyes, No Excessive tearing, No Eye Pain, No Itchy Eyes, No Loss of vision, No Photophobia , No Scotomata, No Uses contacts, No Uses glasses, No Other HEENT: No: Heacaches, Visual Changes, Hearing change, Nasal congestion, Nasal discharge, Oral lesions, Sinus pain, Sore Throat, Epistaxis, Sneezing, Snoring, Tinnitus, Vertigo, Vocal changes, Other ALLERGY AND IMMUNOLOGY: No: Hives, Insect Bite Sensitivity, Itchy/Watery Eyes, Nasal Congestion, Post Nasal Drip, Seasonal Allergies, Other Hematological and Lymphatic: No: Bleeding Problems, Blood Clots, Blood Transfusions, Brusing, Night Sweats, Pallor, Swollen Lymph Nodes, Other ENDOCRINE: No: Breast Changes, Galactorrhea, Hair Pattern Changes, Hot Flashes , Malaise/lethargy, Mood Swings, Palpitations, Polydipsia/polyuria, Skin Changes , Temperature Intolerance, Unexpected Weight Changes, Other Breast: No New/Changing Breast Lumps, No Nipple changes, No Nipple discharge, No Other Respiratory: YES: Cough, Wheezing; No: Hemoptysis, Orthopnea, Pleuritic Pain, Shortness of breath, SOB with excertion, Sputum Changes, Stridor, Tachypnea, Other Cardiovascular: yes Palpitations; No Chest Pain, No Orthopnea, No Paroxysmal Noc. Dyspnea, No Edema, No Lt Headedness, No Other Gastrointestinal: Yes Nausea; No Vomiting, No Abdominal Pain, No Diarrhea, No Constipation, No Melena, No Hematochezia, No Other Genitourinary: No Dysuria, No Frequency, No Incontinence, No Hematuria, No Retention, No Discharge, No Urgency, No Pain, No Flank Pain, No Other, No , No , No , No , No , No , No Musculoskeletal: No Gait Disturbance, No Joint Pain, No Joint Stiffness, No Joint Swelling, No Muscle Pain, No Muscular Weakness, No Pain In:, No Swelling In:, No Other Neurological: No Behavorial Changes, No Bowel/Bladder ControlChng, No Confusion , No Dizziness, No Gait Disturbance, No Headaches, No Impaired Coord/balance, No Memory Loss, No Numbness/Tingling, No Seizures, No Speech Problems, No Tremors, No Visual Changes, No Weakness, No Other Skin: No Dry Skin, No Eczema, No Hair Changes, No Lumps, No Mole Changes, No Mottling, No Nail Changes, No Pruritus, No Rash, No Skin Lesion Changes, No Other, No Acne Physical Exam General: Alert, Oriented X3, Cooperative, No acute distress HEENT: Atraumatic, PERRLA, EOMI, Mucous membr. moist/pink Lungs: Other (Wheezing bilaterally) Heart: S1S2, other (tachycardic) Abdomen: Normal bowel sounds, Soft, No tenderness, No hepatosplenomegaly, No masses Rectal Exam: not examined Extremities: No clubbing, No cyanosis, No edema, Normal pulses, No tenderness/ swelling Skin: No rashes, No breakdown, No significant lesion Neuro: Normal gait, Normal speech, Strength at 5/5 X4 ext, Normal tone, Sensation intact, Cranial nerves 3-12 NL, Reflexes 2+ Psych/Mental Status: Mental status NL, Mood NL Vitals Vitals Vital Signs Date Time Temp Pulse Resp B/P (MAP) Pulse Ox O2 Delivery O2 Flow Rate FiO2 07/20/18 15:51 96 22 123/95 (104) 98 Room Air 07/20/18 13:41 98.2 98.2 Labs Labs Laboratory Tests Test 07/20/18 13:25 White Blood Count 12.1 x10^3/uL (4.0-11.0) Red Blood Count 5.98 x10^6/uL (3.50-5.40) Hemoglobin 14.8 g/dL (12.0-15.5) Hematocrit 44.0 % (36.0-47.0) Mean Corpuscular Volume 74 fL (79-100) Mean Corpuscular Hemoglobin 25 pg (25-35) Mean Corpuscular Hemoglobin Concent 34 g/dL (31-37) Red Cell Distribution Width 15.5 % (11.5-14.5) Platelet Count 290 x10^3/uL (140-400) Neutrophils (%) (Auto) 54 % (31-73) Lymphocytes (%) (Auto) 38 % (24-48) Monocytes (%) (Auto) 7 % (0-9) Eosinophils (%) (Auto) 1 % (0-3) Basophils (%) (Auto) 1 % (0-3) Neutrophils # (Auto) 6.5 x10^3uL (1.8-7.7) Lymphocytes # (Auto) 4.6 x10^3/uL (1.0-4.8) Monocytes # (Auto) 0.8 x10^3/uL (0.0-1.1) Eosinophils # (Auto) 0.1 x10^3/uL (0.0-0.7) Basophils # (Auto) 0.1 x10^3/uL (0.0-0.2) Prothrombin Time 13.2 SEC (11.7-14.0) Prothromb Time International Ratio 1.0 (0.8-1.1) Activated Partial Thromboplast Time 24 SEC (24-38) Sodium Level 142 mmol/L (136-145) Potassium Level 3.6 mmol/L (3.5-5.1) Chloride Level 103 mmol/L (98-107) Carbon Dioxide Level 26 mmol/L (21-32) Anion Gap 13 (6-14) Blood Urea Nitrogen 21 mg/dL (7-20) Creatinine 1.1 mg/dL (0.6-1.0) Estimated GFR (Cockcroft-Gault) 51.0 BUN/Creatinine Ratio 19 (6-20) Glucose Level 151 mg/dL (70-99) Calcium Level 8.6 mg/dL (8.5-10.1) Magnesium Level 2.1 mg/dL (1.8-2.4) Total Bilirubin 0.3 mg/dL (0.2-1.0) Aspartate Amino Transf (AST/SGOT) 33 U/L (15-37) Alanine Aminotransferase (ALT/SGPT) 54 U/L (14-59) Alkaline Phosphatase 88 U/L (46-116) Creatine Kinase 84 U/L (26-192) Creatine Kinase MB (Mass) 1.1 ng/mL (0.0-3.6) Creatine Kinase MB Relative Index 1.3 % (0-4) Troponin I Quantitative < 0.017 ng/mL (0.000-0.055) HC-Wtf-G-Type Natriuretic Peptide 135 pg/mL (0-124) Total Protein 7.7 g/dL (6.4-8.2) Albumin 3.4 g/dL (3.4-5.0) Albumin/Globulin Ratio 0.8 (1.0-1.7) Thyroid Stimulating Hormone (TSH) 1.639 uIU/mL (0.358-3.74) Free Thyroxine 1.03 ng/dL (0.76-1.46) Laboratory Tests Test 07/20/18 13:25 White Blood Count 12.1 x10^3/uL (4.0-11.0) Red Blood Count 5.98 x10^6/uL (3.50-5.40) Hemoglobin 14.8 g/dL (12.0-15.5) Hematocrit 44.0 % (36.0-47.0) Mean Corpuscular Volume 74 fL (79-100) Mean Corpuscular Hemoglobin 25 pg (25-35) Mean Corpuscular Hemoglobin Concent 34 g/dL (31-37) Red Cell Distribution Width 15.5 % (11.5-14.5) Platelet Count 290 x10^3/uL (140-400) Neutrophils (%) (Auto) 54 % (31-73) Lymphocytes (%) (Auto) 38 % (24-48) Monocytes (%) (Auto) 7 % (0-9) Eosinophils (%) (Auto) 1 % (0-3) Basophils (%) (Auto) 1 % (0-3) Neutrophils # (Auto) 6.5 x10^3uL (1.8-7.7) Lymphocytes # (Auto) 4.6 x10^3/uL (1.0-4.8) Monocytes # (Auto) 0.8 x10^3/uL (0.0-1.1) Eosinophils # (Auto) 0.1 x10^3/uL (0.0-0.7) Basophils # (Auto) 0.1 x10^3/uL (0.0-0.2) Prothrombin Time 13.2 SEC (11.7-14.0) Prothromb Time International Ratio 1.0 (0.8-1.1) Activated Partial Thromboplast Time 24 SEC (24-38) Sodium Level 142 mmol/L (136-145) Potassium Level 3.6 mmol/L (3.5-5.1) Chloride Level 103 mmol/L (98-107) Carbon Dioxide Level 26 mmol/L (21-32) Anion Gap 13 (6-14) Blood Urea Nitrogen 21 mg/dL (7-20) Creatinine 1.1 mg/dL (0.6-1.0) Estimated GFR (Cockcroft-Gault) 51.0 BUN/Creatinine Ratio 19 (6-20) Glucose Level 151 mg/dL (70-99) Calcium Level 8.6 mg/dL (8.5-10.1) Magnesium Level 2.1 mg/dL (1.8-2.4) Total Bilirubin 0.3 mg/dL (0.2-1.0) Aspartate Amino Transf (AST/SGOT) 33 U/L (15-37) Alanine Aminotransferase (ALT/SGPT) 54 U/L (14-59) Alkaline Phosphatase 88 U/L (46-116) Creatine Kinase 84 U/L (26-192) Creatine Kinase MB (Mass) 1.1 ng/mL (0.0-3.6) Creatine Kinase MB Relative Index 1.3 % (0-4) Troponin I Quantitative < 0.017 ng/mL (0.000-0.055) MK-Dij-X-Type Natriuretic Peptide 135 pg/mL (0-124) Total Protein 7.7 g/dL (6.4-8.2) Albumin 3.4 g/dL (3.4-5.0) Albumin/Globulin Ratio 0.8 (1.0-1.7) Thyroid Stimulating Hormone (TSH) 1.639 uIU/mL (0.358-3.74) Free Thyroxine 1.03 ng/dL (0.76-1.46) VTE Prophylaxis Ordered VTE Prophylaxis Devices: Yes VTE Pharmacological Prophylaxi: No Assessment/Plan Assessment/Plan A/P: Paroxysmal supraventricular tachycardia - Probably secondary to the patient's pulmonary condition. Will not use beta blockers in the setting of her pulmonary issues. Cont on lower dose calcium channel blockers. Check TSH Asthma/bronchitis. Patient has been started on antibiotics and steroid treatment , will continue her course and nebs. Unfortunately we do not have xopenex Hypokalemia. Being replaced. Check mag Smoker - cessation encouraged Leukocytosis - she meets SIRS criteria, likely from her bronchitis, cont doxy plus nebs ELVIN - now cr jumped to 1.1 with elevated BUN 21 since her discharge, baseline 0.8. Will give IVF resuscitation as she is too short of breath and tachy to take PO currently FEN - Cardiac diet PPX - SCDs FULL CODE Inpatient for recurrent SVT not abated, hopefully just 1 night will be able to convert her. Cardiology to see WALKER MADSEN MD Jul 20, 2018 16:17
[2018-07-20] MEDS ORDERED: ALBUTEROL SULFATE 2.5 MG/3 ML NEBU. INH PRN (16:30)
[2018-07-20] MEDS ORDERED: ZOLPIDEM 5 MG TABLET. PO PRN (16:30)
[2018-07-20] MEDS ORDERED: ACETAMINOPHEN 325 MG TABLET. PO PRN (16:30)
[2018-07-20] MEDS ORDERED: MAGNESIUM HYDROXIDE 2,400 MG/30 ML ORAL.SUSP. PO PRN (16:30)
[2018-07-20] MEDS ORDERED: PROCHLORPERAZINE 10 MG/2 ML VIAL. IV PRN (16:30)
[2018-07-20] MEDS ORDERED: LACTULOSE 20 GM/30 ML SOLUTION. PO PRN (16:30)
[2018-07-20] MEDS ORDERED: ONDANSETRON PF 4 MG/2 ML VIAL. IV PRN (16:30)
[2018-07-20] MEDS ORDERED: POTASSIUM CHLORIDE 20 MEQ TABLET.ER. PO ONE (16:45)
[2018-07-20] MEDS ORDERED: IV RINGERS,LACTATED 1000ML 1,000 ML IV SCH (17:00)
[2018-07-20 18:14] VITALS: BP 137/85
[2018-07-20] MEDS: DOXYCYCLINE HYCLATE 100 MG in IV DEXTROSE 5% 100ML 100 ML IV SCH (18:19)
[2018-07-20 19:18] VITALS: BP 141/90
[2018-07-20] MEDS: IPRATRPIUM/ALBUTEROL 0.5/2.5MG 3 ML NEBU. NEB SCH (20:18)
[2018-07-20] MEDS: SENNOSIDES/DOCUSATE 8.6/50MG TABLET. PO SCH (20:29)
[2018-07-20] MEDS: LACTOBACILLUS RHAMNOSUS GG 1 CAPSULE. PO SCH (20:30)
[2018-07-20 22:17] VITALS: BP 113/81
[2018-07-21 03:25] VITALS: BP 138/95
[2018-07-21 04:15] LABS: BASO % 0 % (0-3); EOS % 0 % (0-3); HEMATOCRIT 40.4 % (36.0-47.0); HEMOGLOBIN 13.2 g/dL (12.0-15.5); LYMPH % 9 % (24-48); MEAN CORPUSCULAR HEMOGLOBIN 24 pg (25-35); MEAN CORPUSCULAR HGB CONC 33 g/dL (31-37); MEAN CORPUSCULAR VOLUME 75 fL (79-100); MONO # 0.3 x10^3/uL (0.0-1.1); MONO % 3 % (0-9); NEUT # 9.8 x10^3uL (1.8-7.7); NEUT % 88 % (31-73); PLATELET COUNT 258 x10^3/uL (140-400); RED BLOOD COUNT 5.41 x10^6/uL (3.50-5.40); RED CELL DISTRIBUTION WIDTH 15.8 % (11.5-14.5); WHITE BLOOD COUNT 11.1 x10^3/uL (4.0-11.0)
[2018-07-21 05:31] LABS: CALCIUM 8.7 mg/dL (8.5-10.1); CREATININE 0.8 mg/dL (0.6-1.0); GFR 73.7
[2018-07-21] MEDS: METOPROLOL TART IMMED RELEASE 25 MG TABLET. PO SCH ×3 (06:20→11:56)
[2018-07-21 07:00] VITALS: BP 165/91
--- NOTE | 2018-07-21 07:37 | PDOC ---
PROGRESS NOTES Chief Complaint Chief Complaint A/P: Paroxysmal supraventricular tachycardia - Probably secondary to the patient's pulmonary condition. Will not use beta blockers in the setting of her pulmonary issues. Cont on lower dose calcium channel blockers. Check TSH Asthma/bronchitis. Patient has been started on antibiotics and steroid treatment , will continue her course and nebs. Unfortunately we do not have xopenex Hypokalemia. Being replaced. Check mag Smoker - cessation encouraged Leukocytosis - she meets SIRS criteria, likely from her bronchitis, cont doxy plus nebs ELVIN - now cr jumped to 1.1 with elevated BUN 21 since her discharge, baseline 0.8. Will give IVF resuscitation as she is too short of breath and tachy to take PO currently FEN - Cardiac diet PPX - SCDs FULL CODE Inpatient for recurrent SVT not abated, hopefully just 1 night will be able to convert her. Cardiology to see History of Present Illness History of Present Illness 58 yo F with history of asthma, smoker presented ER today for rapid heart rate, having dizziness, trouble breathing about 30 minutes ago while she was on her way home from work. 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 She was given adenosine 6mg which nearly abated her SVT, required another 12mg with some short term improvement. Still short of breath, called for admission. Overnight need 1x metoprolol IV which abated further SVT and started oral metoprol, which she feels helps more than cardizem. Plan: Echo today, f/u cardiology recs, Can d/c on metoprolol, take 3 days off work to recover from bronchitis Vitals Vitals Vital Signs Date Time Temp Pulse Resp B/P (MAP) Pulse Ox O2 Delivery O2 Flow Rate FiO2 07/21/18 06:20 71 138/95 07/21/18 03:25 98.0 16 96 Room Air 98.0 Physical Exam General: Alert, Oriented X3, Cooperative, No acute distress Heart: Regular rate, Normal S1, Normal S2, No murmurs Lungs: Clear Abdomen: Normal bowel sounds, Soft, No tenderness, No hepatosplenomegaly, No masses Extremities: No clubbing, No cyanosis, No edema, Normal pulses, No tenderness/ swelling Skin: No rashes, No breakdown, No significant lesion Labs LABS Laboratory Tests Test 07/20/18 13:25 07/21/18 03:30 07/21/18 03:35 White Blood Count 12.1 x10^3/uL (4.0-11.0) 11.1 x10^3/uL (4.0-11.0) Red Blood Count 5.98 x10^6/uL (3.50-5.40) 5.41 x10^6/uL (3.50-5.40) Hemoglobin 14.8 g/dL (12.0-15.5) 13.2 g/dL (12.0-15.5) Hematocrit 44.0 % (36.0-47.0) 40.4 % (36.0-47.0) Mean Corpuscular Volume 74 fL (79-100) 75 fL (79-100) Mean Corpuscular Hemoglobin 25 pg (25-35) 24 pg (25-35) Mean Corpuscular Hemoglobin Concent 34 g/dL (31-37) 33 g/dL (31-37) Red Cell Distribution Width 15.5 % (11.5-14.5) 15.8 % (11.5-14.5) Platelet Count 290 x10^3/uL (140-400) 258 x10^3/uL (140-400) Neutrophils (%) (Auto) 54 % (31-73) 88 % (31-73) Lymphocytes (%) (Auto) 38 % (24-48) 9 % (24-48) Monocytes (%) (Auto) 7 % (0-9) 3 % (0-9) Eosinophils (%) (Auto) 1 % (0-3) 0 % (0-3) Basophils (%) (Auto) 1 % (0-3) 0 % (0-3) Neutrophils # (Auto) 6.5 x10^3uL (1.8-7.7) 9.8 x10^3uL (1.8-7.7) Lymphocytes # (Auto) 4.6 x10^3/uL (1.0-4.8) 1.0 x10^3/uL (1.0-4.8) Monocytes # (Auto) 0.8 x10^3/uL (0.0-1.1) 0.3 x10^3/uL (0.0-1.1) Eosinophils # (Auto) 0.1 x10^3/uL (0.0-0.7) 0.0 x10^3/uL (0.0-0.7) Basophils # (Auto) 0.1 x10^3/uL (0.0-0.2) 0.0 x10^3/uL (0.0-0.2) Prothrombin Time 13.2 SEC (11.7-14.0) Prothromb Time International Ratio 1.0 (0.8-1.1) Activated Partial Thromboplast Time 24 SEC (24-38) Sodium Level 142 mmol/L (136-145) 140 mmol/L (136-145) Potassium Level 3.6 mmol/L (3.5-5.1) 5.0 mmol/L (3.5-5.1) Chloride Level 103 mmol/L (98-107) 104 mmol/L (98-107) Carbon Dioxide Level 26 mmol/L (21-32) 26 mmol/L (21-32) Anion Gap 13 (6-14) 10 (6-14) Blood Urea Nitrogen 21 mg/dL (7-20) 20 mg/dL (7-20) Creatinine 1.1 mg/dL (0.6-1.0) 0.8 mg/dL (0.6-1.0) Estimated GFR (Cockcroft-Gault) 51.0 73.7 BUN/Creatinine Ratio 19 (6-20) Glucose Level 151 mg/dL (70-99) 211 mg/dL (70-99) Calcium Level 8.6 mg/dL (8.5-10.1) 8.7 mg/dL (8.5-10.1) Magnesium Level 2.1 mg/dL (1.8-2.4) Total Bilirubin 0.3 mg/dL (0.2-1.0) Aspartate Amino Transf (AST/SGOT) 33 U/L (15-37) Alanine Aminotransferase (ALT/SGPT) 54 U/L (14-59) Alkaline Phosphatase 88 U/L (46-116) Creatine Kinase 84 U/L (26-192) Creatine Kinase MB (Mass) 1.1 ng/mL (0.0-3.6) Creatine Kinase MB Relative Index 1.3 % (0-4) Troponin I Quantitative < 0.017 ng/mL (0.000-0.055) NW-Geg-N-Type Natriuretic Peptide 135 pg/mL (0-124) Total Protein 7.7 g/dL (6.4-8.2) Albumin 3.4 g/dL (3.4-5.0) Albumin/Globulin Ratio 0.8 (1.0-1.7) Thyroid Stimulating Hormone (TSH) 1.639 uIU/mL (0.358-3.74) Free Thyroxine 1.03 ng/dL (0.76-1.46) Assessment and Plan Assessmemt and Plan Problems Medical Problems: (1) Asthmatic bronchitis Status: Acute (2) SVT (supraventricular tachycardia) Status: Acute Comment Review of Relevant I have reviewed the following items doreen (where applicable) has been applied. Labs Laboratory Tests Test 07/20/18 13:25 07/21/18 03:30 07/21/18 03:35 White Blood Count 12.1 x10^3/uL (4.0-11.0) 11.1 x10^3/uL (4.0-11.0) Red Blood Count 5.98 x10^6/uL (3.50-5.40) 5.41 x10^6/uL (3.50-5.40) Hemoglobin 14.8 g/dL (12.0-15.5) 13.2 g/dL (12.0-15.5) Hematocrit 44.0 % (36.0-47.0) 40.4 % (36.0-47.0) Mean Corpuscular Volume 74 fL (79-100) 75 fL (79-100) Mean Corpuscular Hemoglobin 25 pg (25-35) 24 pg (25-35) Mean Corpuscular Hemoglobin Concent 34 g/dL (31-37) 33 g/dL (31-37) Red Cell Distribution Width 15.5 % (11.5-14.5) 15.8 % (11.5-14.5) Platelet Count 290 x10^3/uL (140-400) 258 x10^3/uL (140-400) Neutrophils (%) (Auto) 54 % (31-73) 88 % (31-73) Lymphocytes (%) (Auto) 38 % (24-48) 9 % (24-48) Monocytes (%) (Auto) 7 % (0-9) 3 % (0-9) Eosinophils (%) (Auto) 1 % (0-3) 0 % (0-3) Basophils (%) (Auto) 1 % (0-3) 0 % (0-3) Neutrophils # (Auto) 6.5 x10^3uL (1.8-7.7) 9.8 x10^3uL (1.8-7.7) Lymphocytes # (Auto) 4.6 x10^3/uL (1.0-4.8) 1.0 x10^3/uL (1.0-4.8) Monocytes # (Auto) 0.8 x10^3/uL (0.0-1.1) 0.3 x10^3/uL (0.0-1.1) Eosinophils # (Auto) 0.1 x10^3/uL (0.0-0.7) 0.0 x10^3/uL (0.0-0.7) Basophils # (Auto) 0.1 x10^3/uL (0.0-0.2) 0.0 x10^3/uL (0.0-0.2) Prothrombin Time 13.2 SEC (11.7-14.0) Prothromb Time International Ratio 1.0 (0.8-1.1) Activated Partial Thromboplast Time 24 SEC (24-38) Sodium Level 142 mmol/L (136-145) 140 mmol/L (136-145) Potassium Level 3.6 mmol/L (3.5-5.1) 5.0 mmol/L (3.5-5.1) Chloride Level 103 mmol/L (98-107) 104 mmol/L (98-107) Carbon Dioxide Level 26 mmol/L (21-32) 26 mmol/L (21-32) Anion Gap 13 (6-14) 10 (6-14) Blood Urea Nitrogen 21 mg/dL (7-20) 20 mg/dL (7-20) Creatinine 1.1 mg/dL (0.6-1.0) 0.8 mg/dL (0.6-1.0) Estimated GFR (Cockcroft-Gault) 51.0 73.7 BUN/Creatinine Ratio 19 (6-20) Glucose Level 151 mg/dL (70-99) 211 mg/dL (70-99) Calcium Level 8.6 mg/dL (8.5-10.1) 8.7 mg/dL (8.5-10.1) Magnesium Level 2.1 mg/dL (1.8-2.4) Total Bilirubin 0.3 mg/dL (0.2-1.0) Aspartate Amino Transf (AST/SGOT) 33 U/L (15-37) Alanine Aminotransferase (ALT/SGPT) 54 U/L (14-59) Alkaline Phosphatase 88 U/L (46-116) Creatine Kinase 84 U/L (26-192) Creatine Kinase MB (Mass) 1.1 ng/mL (0.0-3.6) Creatine Kinase MB Relative Index 1.3 % (0-4) Troponin I Quantitative < 0.017 ng/mL (0.000-0.055) QP-Nxu-H-Type Natriuretic Peptide 135 pg/mL (0-124) Total Protein 7.7 g/dL (6.4-8.2) Albumin 3.4 g/dL (3.4-5.0) Albumin/Globulin Ratio 0.8 (1.0-1.7) Thyroid Stimulating Hormone (TSH) 1.639 uIU/mL (0.358-3.74) Free Thyroxine 1.03 ng/dL (0.76-1.46) Laboratory Tests Test 07/20/18 13:25 07/21/18 03:30 07/21/18 03:35 White Blood Count 12.1 x10^3/uL (4.0-11.0) 11.1 x10^3/uL (4.0-11.0) Red Blood Count 5.98 x10^6/uL (3.50-5.40) 5.41 x10^6/uL (3.50-5.40) Hemoglobin 14.8 g/dL (12.0-15.5) 13.2 g/dL (12.0-15.5) Hematocrit 44.0 % (36.0-47.0) 40.4 % (36.0-47.0) Mean Corpuscular Volume 74 fL (79-100) 75 fL (79-100) Mean Corpuscular Hemoglobin 25 pg (25-35) 24 pg (25-35) Mean Corpuscular Hemoglobin Concent 34 g/dL (31-37) 33 g/dL (31-37) Red Cell Distribution Width 15.5 % (11.5-14.5) 15.8 % (11.5-14.5) Platelet Count 290 x10^3/uL (140-400) 258 x10^3/uL (140-400) Neutrophils (%) (Auto) 54 % (31-73) 88 % (31-73) Lymphocytes (%) (Auto) 38 % (24-48) 9 % (24-48) Monocytes (%) (Auto) 7 % (0-9) 3 % (0-9) Eosinophils (%) (Auto) 1 % (0-3) 0 % (0-3) Basophils (%) (Auto) 1 % (0-3) 0 % (0-3) Neutrophils # (Auto) 6.5 x10^3uL (1.8-7.7) 9.8 x10^3uL (1.8-7.7) Lymphocytes # (Auto) 4.6 x10^3/uL (1.0-4.8) 1.0 x10^3/uL (1.0-4.8) Monocytes # (Auto) 0.8 x10^3/uL (0.0-1.1) 0.3 x10^3/uL (0.0-1.1) Eosinophils # (Auto) 0.1 x10^3/uL (0.0-0.7) 0.0 x10^3/uL (0.0-0.7) Basophils # (Auto) 0.1 x10^3/uL (0.0-0.2) 0.0 x10^3/uL (0.0-0.2) Prothrombin Time 13.2 SEC (11.7-14.0) Prothromb Time International Ratio 1.0 (0.8-1.1) Activated Partial Thromboplast Time 24 SEC (24-38) Sodium Level 142 mmol/L (136-145) 140 mmol/L (136-145) Potassium Level 3.6 mmol/L (3.5-5.1) 5.0 mmol/L (3.5-5.1) Chloride Level 103 mmol/L (98-107) 104 mmol/L (98-107) Carbon Dioxide Level 26 mmol/L (21-32) 26 mmol/L (21-32) Anion Gap 13 (6-14) 10 (6-14) Blood Urea Nitrogen 21 mg/dL (7-20) 20 mg/dL (7-20) Creatinine 1.1 mg/dL (0.6-1.0) 0.8 mg/dL (0.6-1.0) Estimated GFR (Cockcroft-Gault) 51.0 73.7 BUN/Creatinine Ratio 19 (6-20) Glucose Level 151 mg/dL (70-99) 211 mg/dL (70-99) Calcium Level 8.6 mg/dL (8.5-10.1) 8.7 mg/dL (8.5-10.1) Magnesium Level 2.1 mg/dL (1.8-2.4) Total Bilirubin 0.3 mg/dL (0.2-1.0) Aspartate Amino Transf (AST/SGOT) 33 U/L (15-37) Alanine Aminotransferase (ALT/SGPT) 54 U/L (14-59) Alkaline Phosphatase 88 U/L (46-116) Creatine Kinase 84 U/L (26-192) Creatine Kinase MB (Mass) 1.1 ng/mL (0.0-3.6) Creatine Kinase MB Relative Index 1.3 % (0-4) Troponin I Quantitative < 0.017 ng/mL (0.000-0.055) HA-Wux-Y-Type Natriuretic Peptide 135 pg/mL (0-124) Total Protein 7.7 g/dL (6.4-8.2) Albumin 3.4 g/dL (3.4-5.0) Albumin/Globulin Ratio 0.8 (1.0-1.7) Thyroid Stimulating Hormone (TSH) 1.639 uIU/mL (0.358-3.74) Free Thyroxine 1.03 ng/dL (0.76-1.46) Medications Current Medications Albuterol/ Ipratropium (Duoneb) 3 ml 1X ONCE NEB Last administered on at 14:13; Start 07/20/18 at 13:30; Stop 07/20/18 at 13:31; Status DC Adenosine (Adenocard) 6 mg 1X ONCE IV Last administered on 07/20/18at 13:32; Start 07/20/18 at 13:30; Stop 07/20/18 at 13:31; Status DC Adenosine (Adenocard) 6 mg STK-MED ONCE IV ; Start 07/20/18 at 13:27; Stop at 13:28; Status DC Diltiazem HCl (Cardizem 24hr Cd) 180 mg DAILY PO Last administered on 07/20/18at 14:03; Start 07/20/18 at 14:00; Stop 07/20/18 at 16:38; Status DC Methylprednisolone Sodium Succinate (SOLU-Medrol 125MG VIAL) 125 mg 1X ONCE IV Last administered on 07/20/18at 14:03; Start 07/20/18 at 13:45; Stop 07/20/18 at 13:46; Status DC Adenosine (Adenocard) 12 mg 1X ONCE IV Last administered on 07/20/18at 15:37; Start 07/20/18 at 15:45; Stop 07/20/18 at 15:46; Status DC Albuterol/ Ipratropium (Duoneb) 3 ml RTQID NEB Last administered on 07/20/18at 20 :18; Start 07/20/18 at 20:00; Stop 07/21/18 at 19:59 Albuterol Sulfate (Ventolin Neb Soln) 2.5 mg PRN Q6HRS PRN INH SHORTNESS OF BREATH; Start 07/20/18 at 16:30 Ringer's Solution 1,000 ml @ 100 mls/hr Q10H IV Last administered on 07/20/18at 18:20; Start 07/20/18 at 17:00; Stop 07/21/18 at 02:59; Status DC Ondansetron HCl (Zofran) 4 mg PRN Q6HRS PRN IV NAUSEA/VOMITING 1ST CHOICE; Start 07/20/18 at 16:30 Prochlorperazine Edisylate (Compazine) 10 mg PRN Q6HRS PRN IV NAUSEA/VOMITING 2ND CHOICE; Start 07/20/18 at 16:30 Zolpidem Tartrate (Ambien) 5 mg PRN QHS PRN PO INSOMNIA, MAY REPEAT IN 1HR; Start 07/20/18 at 16:30 Acetaminophen (Tylenol) 650 mg PRN Q6HRS PRN PO Headaches, Temp > 101.5F; Start 07/20/18 at 16:30 Senna/Docusate Sodium (Senna Plus) 1 tab BID PO Last administered on 07/20/18at 20:29; Start 07/20/18 at 21:00 Magnesium Hydroxide (Milk Of Magnesia) 2,400 mg PRN Q12HR PRN PO CONSTIPATION 1ST CHOICE; Start 07/20/18 at 16:30 Lactulose (Lactulose) 20 gm PRN Q12HR PRN PO CONSTIPATION 2ND CHOICE; Start 07/20/18 at 16:30 Doxycycline Hyclate 100 mg/ Dextrose 100 ml @ 50 mls/hr BID IV Last administered on 07/20/18at 18:19; Start 07/20/18 at 17:30 Diltiazem HCl (Cardizem 24hr Cd) 120 mg DAILY PO ; Start 07/21/18 at 09:00; Stop 07/21/18 at 09:00; Status DC Prednisone (Prednisone) 20 mg DAILY PO ; Start 07/21/18 at 09:00 Potassium Chloride (Klor-Con) 40 meq 1X ONCE PO Last administered on 07/20/18at 16:51; Start 07/20/18 at 16:45; Stop 07/20/18 at 16:46; Status DC Lactobacillus Rhamnosus (Culturelle) 1 cap BID PO Last administered on at 20:30; Start 07/20/18 at 21:00 Metoprolol Tartrate (Lopressor) 25 mg Q6HRS PO Last administered on 07/21/18at 06 :20; Start 07/21/18 at 00:00 Active Scripts Active Reported Proair Hfa (Albuterol Sulfate) 8.5 Gm Hfa.aer.ad 1 Puff INH PRN Q6HRS PRN Cipro (Ciprofloxacin Hcl) 500 Mg Tablet 1 Tab PO BID 7 Days Medrol (Methylprednisolone) 4 Mg Tab.ds.pk 1 Pkg PO UD Cardizem Cd (Diltiazem Hcl) 180 Mg Cap.er.24h 180 Mg PO DAILY Vitals/I & O Vital Sign - Last 24 Hours 07/20/18 07/20/18 07/20/18 07/20/18 13:36 13:41 13:51 14:03 Temp 98.2 98.2 Pulse 108 182 96 98 Resp 17 20 17 B/P (MAP) 125/90 (102) 119/104 (109) 140/95 (110) 140/95 Pulse Ox 97 98 96 O2 Delivery Room Air Room Air Room Air 07/20/18 07/20/18 07/20/18 07/20/18 14:06 14:14 14:21 14:36 Pulse 96 96 104 Resp 18 20 18 B/P (MAP) 119/90 (100) 140/83 (102) 140/87 (104) Pulse Ox 96 96 96 O2 Delivery Room Air Room Air Room Air Room Air 07/20/18 07/20/18 07/20/18 07/20/18 15:36 15:51 16:36 16:51 Pulse 186 96 88 92 Resp 20 22 19 20 B/P (MAP) 126/85 (99) 123/95 (104) 131/91 (104) 152/90 (110) Pulse Ox 98 98 95 95 O2 Delivery Room Air Room Air Room Air Room Air 07/20/18 07/20/18 07/20/18 07/20/18 17:21 18:14 18:36 19:18 Temp 98.1 98.2 98.1 98.2 Pulse 86 106 76 Resp 18 20 16 B/P (MAP) 134/84 (101) 137/85 (102) 141/90 (107) Pulse Ox 96 94 97 O2 Delivery Room Air Room Air Room Air Room Air 07/20/18 07/20/18 07/20/18 07/21/18 20:00 20:23 22:17 00:00 Temp 98.3 98.3 Pulse 88 88 Resp 16 B/P (MAP) 113/81 (92) 113/81 Pulse Ox 100 97 O2 Delivery Room Air Room Air Room Air 07/21/18 07/21/18 03:25 06:20 Temp 98.0 98.0 Pulse 71 71 Resp 16 B/P (MAP) 138/95 (109) 138/95 Pulse Ox 96 O2 Delivery Room Air Intake and Output 07/20/18 07/20/18 07/21/18 14:59 22:59 06:59 Intake Total 340 ml 1070 ml Output Total 400 ml 900 ml Balance -60 ml 170 ml WALKER MADSEN MD Jul 21, 2018 07:37
[2018-07-21] MEDS: IPRATRPIUM/ALBUTEROL 0.5/2.5MG 3 ML NEBU. NEB SCH ×3 (07:55→16:00)
[2018-07-21] MEDS: SENNOSIDES/DOCUSATE 8.6/50MG TABLET. PO SCH (08:31)
[2018-07-21] MEDS: LACTOBACILLUS RHAMNOSUS GG 1 CAPSULE. PO SCH (08:31)
[2018-07-21] MEDS: DOXYCYCLINE HYCLATE 100 MG in IV DEXTROSE 5% 100ML 100 ML IV SCH (08:33)
[2018-07-21] MEDS ORDERED: predniSONE 20 MG TABLET PO SCH (09:00)
[2018-07-21 09:15] LABS: % ATYL 1 % (0-0); % BANDS 4 % (0-9); % LYMPHS 10 % (24-48); % METAS 2 % (0-0); % MONOS 3 % (0-10); % SEGS 80 % (35-66); ANISOCYTOSIS SLIGHT; MICROCYTOSIS PRESENT; PLT ESTIMATE ADEQUATE (ADEQUATE)
[2018-07-21 09:16] LABS: HYPOCHROMIA SLIGHT
[2018-07-21 11:00] VITALS: BP 145/81
--- NOTE | 2018-07-21 12:45 | PDOC2 ---
YVES YEBOAH [employer] 07/21/18 1245: CARDIAC CONSULT DATE OF CONSULT Date of Consult DATE: 07/21/18 TIME: 12:25 REASON FOR CONSULT Reason for Consult: SVT REFERRING PHYSICIAN Referring Physician: Eliel SOURCE Source: Chart review, Patient HISTORY OF PRESENT ILLNESS HISTORY OF PRESENT ILLNESS This is a pleasant 58 yo female admitted for SOA. She was then treated for asthma but noted also that her HR was fast. she was having palpitations at that time. No chest pain per se but felt like her heart was beating fast. No nausea or vomiting, no recent fever or chills. No frequent dizzy spells. No recreational drugs. No recent falls or injury. No reports of exacessive caffeine beverage consumption but does smoke tobacco. She has HTN but stopped her norvasc about >1 yr ago reporting she could not afford any. PAST MEDICAL HISTORY Cardiovascular: HTN Pulmonary: Asthma CENTRAL NERVOUS SYSTEM: Other (No pertinent history) GI: No pertinent hx Heme/Onc: No pertinent hx Hepatobiliary: No pertinent hx Psych: No pertinent hx Musculoskeletal: Osteoarthritis Rheumatologic: No pertinent hx Infectious disease: No pertinent hx ENT: No pertinent hx Renal/: No pertinent hx Endocrine: No pertinent hx Dermatology: No pertinent hx PAST SURGICAL HISTORY Past Surgical History: Arthroscopy (right), Cholecystectomy, Hysterectomy ( partial), Other (right foot surgery) FAMILY HISTORY Family History: Heart Disease SOCIAL HISTORY Smoke: <1 pack per day ALCOHOL: occassional Drugs: None Lives: with Family CURRENT MEDICATIONS CURRENT MEDICATIONS Current Medications Medications (Trade) Dose Ordered Sig/Baljinder Route PRN Reason Start Time Stop Time Status Last Admin Dose Admin Albuterol/ Ipratropium (Duoneb) 3 ml 1X ONCE NEB 07/20/18 13:30 07/20/18 13:31 DC 07/20/18 14:13 Adenosine (Adenocard) 6 mg 1X ONCE IV 07/20/18 13:30 07/20/18 13:31 DC 07/20/18 13:32 Diltiazem HCl (Cardizem 24hr Cd) 180 mg DAILY PO 07/20/18 14:00 07/20/18 16:38 DC 07/20/18 14:03 Methylprednisolone Sodium Succinate (SOLU-Medrol 125MG VIAL) 125 mg 1X ONCE IV 07/20/18 13:45 07/20/18 13:46 DC 07/20/18 14:03 Adenosine (Adenocard) 12 mg 1X ONCE IV 07/20/18 15:45 07/20/18 15:46 DC 07/20/18 15:37 Albuterol/ Ipratropium (Duoneb) 3 ml RTQID NEB 07/20/18 20:00 07/21/18 19:59 07/21/18 11:41 Ringer's Solution 1,000 ml @ 100 mls/hr Q10H IV 07/20/18 17:00 07/21/18 02:59 DC 07/20/18 18:20 Senna/Docusate Sodium (Senna Plus) 1 tab BID PO 07/20/18 21:00 07/21/18 08:31 Doxycycline Hyclate 100 mg/ Dextrose 100 ml @ 50 mls/hr BID IV 07/20/18 17:30 07/21/18 08:33 Prednisone (Prednisone) 20 mg DAILY PO 07/21/18 09:00 07/21/18 08:32 Potassium Chloride (Klor-Con) 40 meq 1X ONCE PO 07/20/18 16:45 07/20/18 16:46 DC 07/20/18 16:51 Lactobacillus Rhamnosus (Culturelle) 1 cap BID PO 07/20/18 21:00 07/21/18 08:31 Metoprolol Tartrate (Lopressor) 25 mg Q6HRS PO 07/21/18 00:00 07/21/18 11:56 ALLERGIES ALLERGIES: Coded Allergies: Penicillins (Verified Allergy, Intermediate, 07/16/18) codeine (Verified Adverse Reaction, Mild, constipation, 07/16/18) morphine (Verified Adverse Reaction, Mild, Nausea, 06/24/16) ROS Review of System 14 point ROS evaluated with pertinent positives noted per HPI PHYSICAL EXAM General: Alert, Oriented X3, Cooperative, No acute distress HEENT: Atraumatic, Mucous membr. moist/pink Lungs: Clear to auscultation, Normal air movement Heart: Regular rate (SR), Normal S1, Normal S2, No murmurs Abdomen: Soft, No tenderness Extremities: No cyanosis, No edema Skin: No breakdown, No significant lesion Neuro: Normal speech, Sensation intact Psych/Mental Status: Mental status NL, Mood NL MUSCULOSKELETAL: Osteoarthritic changes both hands VITALS VITALS Vital Signs Date Time Temp Pulse Resp B/P (MAP) Pulse Ox O2 Delivery O2 Flow Rate FiO2 07/21/18 11:56 71 140/75 07/21/18 11:42 Room Air 07/21/18 11:00 97.9 18 100 97.9 LABS Lab: Laboratory Tests Test 07/20/18 13:25 07/21/18 03:30 07/21/18 03:35 White Blood Count 12.1 x10^3/uL (4.0-11.0) 11.1 x10^3/uL (4.0-11.0) Red Blood Count 5.98 x10^6/uL (3.50-5.40) 5.41 x10^6/uL (3.50-5.40) Hemoglobin 14.8 g/dL (12.0-15.5) 13.2 g/dL (12.0-15.5) Hematocrit 44.0 % (36.0-47.0) 40.4 % (36.0-47.0) Mean Corpuscular Volume 74 fL (79-100) 75 fL (79-100) Mean Corpuscular Hemoglobin 25 pg (25-35) 24 pg (25-35) Mean Corpuscular Hemoglobin Concent 34 g/dL (31-37) 33 g/dL (31-37) Red Cell Distribution Width 15.5 % (11.5-14.5) 15.8 % (11.5-14.5) Platelet Count 290 x10^3/uL (140-400) 258 x10^3/uL (140-400) Neutrophils (%) (Auto) 54 % (31-73) 88 % (31-73) Lymphocytes (%) (Auto) 38 % (24-48) 9 % (24-48) Monocytes (%) (Auto) 7 % (0-9) 3 % (0-9) Eosinophils (%) (Auto) 1 % (0-3) 0 % (0-3) Basophils (%) (Auto) 1 % (0-3) 0 % (0-3) Neutrophils # (Auto) 6.5 x10^3uL (1.8-7.7) 9.8 x10^3uL (1.8-7.7) Lymphocytes # (Auto) 4.6 x10^3/uL (1.0-4.8) 1.0 x10^3/uL (1.0-4.8) Monocytes # (Auto) 0.8 x10^3/uL (0.0-1.1) 0.3 x10^3/uL (0.0-1.1) Eosinophils # (Auto) 0.1 x10^3/uL (0.0-0.7) 0.0 x10^3/uL (0.0-0.7) Basophils # (Auto) 0.1 x10^3/uL (0.0-0.2) 0.0 x10^3/uL (0.0-0.2) Prothrombin Time 13.2 SEC (11.7-14.0) Prothromb Time International Ratio 1.0 (0.8-1.1) Activated Partial Thromboplast Time 24 SEC (24-38) Sodium Level 142 mmol/L (136-145) 140 mmol/L (136-145) Potassium Level 3.6 mmol/L (3.5-5.1) 5.0 mmol/L (3.5-5.1) Chloride Level 103 mmol/L (98-107) 104 mmol/L (98-107) Carbon Dioxide Level 26 mmol/L (21-32) 26 mmol/L (21-32) Anion Gap 13 (6-14) 10 (6-14) Blood Urea Nitrogen 21 mg/dL (7-20) 20 mg/dL (7-20) Creatinine 1.1 mg/dL (0.6-1.0) 0.8 mg/dL (0.6-1.0) Estimated GFR (Cockcroft-Gault) 51.0 73.7 BUN/Creatinine Ratio 19 (6-20) Glucose Level 151 mg/dL (70-99) 211 mg/dL (70-99) Calcium Level 8.6 mg/dL (8.5-10.1) 8.7 mg/dL (8.5-10.1) Magnesium Level 2.1 mg/dL (1.8-2.4) Total Bilirubin 0.3 mg/dL (0.2-1.0) Aspartate Amino Transf (AST/SGOT) 33 U/L (15-37) Alanine Aminotransferase (ALT/SGPT) 54 U/L (14-59) Alkaline Phosphatase 88 U/L (46-116) Creatine Kinase 84 U/L (26-192) Creatine Kinase MB (Mass) 1.1 ng/mL (0.0-3.6) Creatine Kinase MB Relative Index 1.3 % (0-4) Troponin I Quantitative < 0.017 ng/mL (0.000-0.055) YP-Qpi-N-Type Natriuretic Peptide 135 pg/mL (0-124) Total Protein 7.7 g/dL (6.4-8.2) Albumin 3.4 g/dL (3.4-5.0) Albumin/Globulin Ratio 0.8 (1.0-1.7) Thyroid Stimulating Hormone (TSH) 1.639 uIU/mL (0.358-3.74) Free Thyroxine 1.03 ng/dL (0.76-1.46) Segmented Neutrophils % 80 % (35-66) Band Neutrophils % 4 % (0-9) Lymphocytes % 10 % (24-48) Atypical Lymphocytes % (Manual) 1 % (0-0) Monocytes % 3 % (0-10) Metamyelocytes % 2 % (0-0) Platelet Estimate Adequate (ADEQUATE) Hypochromasia Slight Anisocytosis Slight Microcytosis Present ASSESSMENT/PLAN ASSESSMENT/PLAN 1. Asthma exacerbation: better. no home coverage. 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 3. HTN; has not take any med for over a yr 4. Tobaccoism Recommendations 1. Metoprolol 2. TTE. Ideally she will need an event monitor but unable to afford due to lack of health insurance. 3. Smoking cessation. 4. Encouraged to follow up. TORI LEYVA MD 07/21/182041: CARDIAC CONSULT ASSESSMENT/PLAN ASSESSMENT/PLAN Patient seen and examined. Agree with MEDICAL ASSISTANT INSTRUCTOR's assessment and plan. Patient converted to SR with adenosine Agree with event monitor as outpatient to evaluate arrhythmia burden 2D echo showed normal LVF Continue BB Thank you for your consultation YVES YEBOAH APRN Jul 21, 2018 12:45 TORI LEYVA MD Jul 21, 2018 20:42
[2018-07-21] MEDS ORDERED: PRED20TA PO (13:08)
[2018-07-21] MEDS ORDERED: METO50TA6 PO (13:08)
[2018-07-21 13:13] LABS: CHOLESTEROL/HDL RATIO 2.6
[2018-07-21 15:00] VITALS: BP 132/83
--- NOTE | 2018-07-21 15:49 | PDOC3 ---
Discharge Summary Visit Information Date of Admission: Jul 20, 2018 Date of Discharge: Jul 21, 2018 Admitting Diagnosis: SVT Final Diagnosis Problems Medical Problems: (1) Asthmatic bronchitis Status: Acute (2) SVT (supraventricular tachycardia) Status: Acute Brief Hospital Course Allergies Allergies Coded Allergies Type Severity Reaction Last Updated Verified Penicillins Allergy Intermediate 07/16/18 Yes codeine Adverse Reaction Mild constipation 07/16/18 Yes morphine Adverse Reaction Mild Nausea 06/24/16 Yes Vital Signs Vital Signs Date Time Temp Pulse Resp B/P (MAP) Pulse Ox O2 Delivery O2 Flow Rate FiO2 07/21/18 15:00 97.8 64 18 132/83 (99) 96 Room Air 97.8 Lab Results Laboratory Tests Test 07/20/18 13:25 07/21/18 03:30 07/21/18 03:35 White Blood Count 12.1 x10^3/uL (4.0-11.0) 11.1 x10^3/uL (4.0-11.0) Red Blood Count 5.98 x10^6/uL (3.50-5.40) 5.41 x10^6/uL (3.50-5.40) Hemoglobin 14.8 g/dL (12.0-15.5) 13.2 g/dL (12.0-15.5) Hematocrit 44.0 % (36.0-47.0) 40.4 % (36.0-47.0) Mean Corpuscular Volume 74 fL (79-100) 75 fL (79-100) Mean Corpuscular Hemoglobin 25 pg (25-35) 24 pg (25-35) Mean Corpuscular Hemoglobin Concent 34 g/dL (31-37) 33 g/dL (31-37) Red Cell Distribution Width 15.5 % (11.5-14.5) 15.8 % (11.5-14.5) Platelet Count 290 x10^3/uL (140-400) 258 x10^3/uL (140-400) Neutrophils (%) (Auto) 54 % (31-73) 88 % (31-73) Lymphocytes (%) (Auto) 38 % (24-48) 9 % (24-48) Monocytes (%) (Auto) 7 % (0-9) 3 % (0-9) Eosinophils (%) (Auto) 1 % (0-3) 0 % (0-3) Basophils (%) (Auto) 1 % (0-3) 0 % (0-3) Neutrophils # (Auto) 6.5 x10^3uL (1.8-7.7) 9.8 x10^3uL (1.8-7.7) Lymphocytes # (Auto) 4.6 x10^3/uL (1.0-4.8) 1.0 x10^3/uL (1.0-4.8) Monocytes # (Auto) 0.8 x10^3/uL (0.0-1.1) 0.3 x10^3/uL (0.0-1.1) Eosinophils # (Auto) 0.1 x10^3/uL (0.0-0.7) 0.0 x10^3/uL (0.0-0.7) Basophils # (Auto) 0.1 x10^3/uL (0.0-0.2) 0.0 x10^3/uL (0.0-0.2) Prothrombin Time 13.2 SEC (11.7-14.0) Prothromb Time International Ratio 1.0 (0.8-1.1) Activated Partial Thromboplast Time 24 SEC (24-38) Sodium Level 142 mmol/L (136-145) 140 mmol/L (136-145) Potassium Level 3.6 mmol/L (3.5-5.1) 5.0 mmol/L (3.5-5.1) Chloride Level 103 mmol/L (98-107) 104 mmol/L (98-107) Carbon Dioxide Level 26 mmol/L (21-32) 26 mmol/L (21-32) Anion Gap 13 (6-14) 10 (6-14) Blood Urea Nitrogen 21 mg/dL (7-20) 20 mg/dL (7-20) Creatinine 1.1 mg/dL (0.6-1.0) 0.8 mg/dL (0.6-1.0) Estimated GFR (Cockcroft-Gault) 51.0 73.7 BUN/Creatinine Ratio 19 (6-20) Glucose Level 151 mg/dL (70-99) 211 mg/dL (70-99) Calcium Level 8.6 mg/dL (8.5-10.1) 8.7 mg/dL (8.5-10.1) Magnesium Level 2.1 mg/dL (1.8-2.4) Total Bilirubin 0.3 mg/dL (0.2-1.0) Aspartate Amino Transf (AST/SGOT) 33 U/L (15-37) Alanine Aminotransferase (ALT/SGPT) 54 U/L (14-59) Alkaline Phosphatase 88 U/L (46-116) Creatine Kinase 84 U/L (26-192) Creatine Kinase MB (Mass) 1.1 ng/mL (0.0-3.6) Creatine Kinase MB Relative Index 1.3 % (0-4) Troponin I Quantitative < 0.017 ng/mL (0.000-0.055) SR-Cfr-J-Type Natriuretic Peptide 135 pg/mL (0-124) Total Protein 7.7 g/dL (6.4-8.2) Albumin 3.4 g/dL (3.4-5.0) Albumin/Globulin Ratio 0.8 (1.0-1.7) Thyroid Stimulating Hormone (TSH) 1.639 uIU/mL (0.358-3.74) Free Thyroxine 1.03 ng/dL (0.76-1.46) Triglycerides Level 55 mg/dL (0-150) Cholesterol Level 151 mg/dL (0-200) LDL Cholesterol, Calculated 83 mg/dL (0-100) VLDL Cholesterol, Calculated 11 mg/dL (0-40) Non-HDL Cholesterol Calculated 94 mg/dL (0-129) HDL Cholesterol 57 mg/dL (40-60) Cholesterol/HDL Ratio 2.6 Segmented Neutrophils % 80 % (35-66) Band Neutrophils % 4 % (0-9) Lymphocytes % 10 % (24-48) Atypical Lymphocytes % (Manual) 1 % (0-0) Monocytes % 3 % (0-10) Metamyelocytes % 2 % (0-0) Platelet Estimate Adequate (ADEQUATE) Hypochromasia Slight Anisocytosis Slight Microcytosis Present Laboratory Tests Test 07/21/18 03:30 07/21/18 03:35 Sodium Level 140 mmol/L (136-145) Potassium Level 5.0 mmol/L (3.5-5.1) Chloride Level 104 mmol/L (98-107) Carbon Dioxide Level 26 mmol/L (21-32) Anion Gap 10 (6-14) Blood Urea Nitrogen 20 mg/dL (7-20) Creatinine 0.8 mg/dL (0.6-1.0) Estimated GFR (Cockcroft-Gault) 73.7 Glucose Level 211 mg/dL (70-99) Calcium Level 8.7 mg/dL (8.5-10.1) Triglycerides Level 55 mg/dL (0-150) Cholesterol Level 151 mg/dL (0-200) LDL Cholesterol, Calculated 83 mg/dL (0-100) VLDL Cholesterol, Calculated 11 mg/dL (0-40) Non-HDL Cholesterol Calculated 94 mg/dL (0-129) HDL Cholesterol 57 mg/dL (40-60) Cholesterol/HDL Ratio 2.6 White Blood Count 11.1 x10^3/uL (4.0-11.0) Red Blood Count 5.41 x10^6/uL (3.50-5.40) Hemoglobin 13.2 g/dL (12.0-15.5) Hematocrit 40.4 % (36.0-47.0) Mean Corpuscular Volume 75 fL (79-100) Mean Corpuscular Hemoglobin 24 pg (25-35) Mean Corpuscular Hemoglobin Concent 33 g/dL (31-37) Red Cell Distribution Width 15.8 % (11.5-14.5) Platelet Count 258 x10^3/uL (140-400) Neutrophils (%) (Auto) 88 % (31-73) Lymphocytes (%) (Auto) 9 % (24-48) Monocytes (%) (Auto) 3 % (0-9) Eosinophils (%) (Auto) 0 % (0-3) Basophils (%) (Auto) 0 % (0-3) Neutrophils # (Auto) 9.8 x10^3uL (1.8-7.7) Lymphocytes # (Auto) 1.0 x10^3/uL (1.0-4.8) Monocytes # (Auto) 0.3 x10^3/uL (0.0-1.1) Eosinophils # (Auto) 0.0 x10^3/uL (0.0-0.7) Basophils # (Auto) 0.0 x10^3/uL (0.0-0.2) Segmented Neutrophils % 80 % (35-66) Band Neutrophils % 4 % (0-9) Lymphocytes % 10 % (24-48) Atypical Lymphocytes % (Manual) 1 % (0-0) Monocytes % 3 % (0-10) Metamyelocytes % 2 % (0-0) Platelet Estimate Adequate (ADEQUATE) Hypochromasia Slight Anisocytosis Slight Microcytosis Present Brief Hospital Course 58 yo F with history of asthma, smoker presented ER today for rapid heart rate, having dizziness, trouble breathing about 30 minutes ago while she was on her way home from work. 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 She was given adenosine 6mg which nearly abated her SVT, required another 12mg with some short term improvement. Still short of breath, called for admission. Overnight need 1x metoprolol IV which abated further SVT and started oral metoprolol, which she feels helps more than cardizem. A/P: Paroxysmal supraventricular tachycardia - Probably secondary to the patient's pulmonary condition. Echo today, f/u cardiology recs, Can d/c on metoprolol, take 3 days off work to recover from bronchitis Asthma/bronchitis. Patient has been started on antibiotics and steroid treatment , will continue her course and nebs. Unfortunately we do not have xopenex Hypokalemia. Being replaced. Check mag Smoker - cessation encouraged Leukocytosis - she meets SIRS criteria, likely from her bronchitis, cont doxy plus nebs ELVIN - now cr jumped to 1.1 with elevated BUN 21 since her discharge, baseline 0.8. Will give IVF resuscitation as she is too short of breath and tachy to take PO currently FEN - Cardiac diet PPX - SCDs FULL CODE Greater than 30 minutes spent on discharge including review of safe meds Discharge Information Condition at Discharge: Improved Follow Up: Weeks (2) Disposition/Orders: D/C to Home Scheduled Methylprednisolone (Medrol) 4 Mg Tab.ds.pk, 1 PKG PO UD for LUNG, #1 (Reported) Entered as Reported by: Shaquille Lima on 07/18/18 7103 Last Action: HELD on 07/20/18 3622 by WALKER MADSEN MD Metoprolol Tartrate (Metoprolol Tartrate) 50 Mg Tablet, 50 MG PO BID for SVT for 30 Days, #60 Ref 2 Prescribed by: WALKER MADSEN MD on 07/21/18 1308 Prednisone (Prednisone) 20 Mg Tablet, 20 MG PO DAILY for Bronchitis for 5 Days, #5 Prescribed by: WALKER MADSEN MD on 07/21/18 1308 Scheduled PRN Albuterol Sulfate (Proair Hfa) 8.5 Gm Hfa.aer.ad, 1 PUFF INH PRN Q6HRS PRN for SHORTNESS OF BREATH, (Reported) Entered as Reported by: Shaquille Lima on 07/18/181206 Last Action: Continued on 07/20/181633 by WALKER MADSEN MD Discontinued Medications Amlodipine Besylate (Amlodipine Besylate) 5 Mg Tablet, 5 MG PO DAILY, (Reported) Entered as Reported by: MARION CHOWDHURY on 06/24/16 08 Ciprofloxacin Hcl (Cipro) 500 Mg Tablet, 1 TAB PO BID for INFECTION for 7 Days, #14 (Reported) Entered as Reported by: Shaquille Lima on 07/18/181205 Last Action: HELD on 07/20/181633 by WALKER MADSEN MD Diltiazem Hcl (Cardizem Cd) 180 Mg Cap.er.24h, 180 MG PO DAILY for FOR HYPERTENSION, #30 Ref 0 (Reported) Entered as Reported by: Shaquille Lima on 07/18/181203 Last Action: HELD on 07/20/181633 by WALKER MADSEN MD Naproxen (Naproxen) 500 Mg Tablet.dr, 1 TAB PO DAILY, #60 Ref 2 (Reported) Entered as Reported by: MARION CHOWDHURY on 06/24/16 0840 WALKER MADSEN MD Jul 21, 2018 15:49
--- NOTE | 2018-07-21 17:18 | CARD ---
MR#: [id number] Date of Study: 07/21/2018 Ordering Physician: YVES YEBOAH, Referring Physician: WALKER MADSEN, Tech: Farhana Viera APPROVED REPORT EXAM: Two-dimensional and M-mode echocardiogram with Doppler and color Doppler. Other Information Quality : FairHR: 67bpm Rhythm : NSRTechnically limited study due to smoking, body habitus and coughing INDICATION Superventricular Tachycardia RISK FACTORS Smoking 2D DIMENSIONS Left Atrium(2D)3.0 (1.6-4.0cm)IVSd1.3 (0.7-1.1cm) Aortic Root(2D)2.5 (2.0-3.7cm)LVDd3.7 (3.9-5.9cm) LVOT Diameter2.2 (1.8-2.4cm)PWd1.2 (0.7-1.1cm) LVDs2.0 (2.5-4.0cm)FS (%) 45.6 % SV45.8 mlLVEF(%)77.8 (>50%) Aortic Valve AoV Peak Kristian.177.6cm/sAoV VTI30.9cm AO Peak GR.12.6mmHgLVOT Peak Kristian.142.3cm/s LVOT VTI 26.64cmAO Mean GR.7mmHg NARA (VMAX)2.31ez9YJD (VTI)3.35cm2 Mitral Valve MV E Ginuhczr26.4cm/sMV DECEL TVTR142mb MV A Gukyfwwc307.4cm/sMV TPC82cj E/A Ratio0.9MVA (PHT)3.23cm2 TDI E/Lateral E'10.0 Pulmonary Valve PV Peak Yqjxcfrn244.5cm/sPV Peak Grad.4mmHg Pulmonary Vein S1 Mbnczfib66.1cm/sD2 Zrhhttjc05.0cm/s PVa [id number] LEFT VENTRICLE The left ventricle is normal size. There is mild to moderate concentric left ventricular hypertrophy. The left ventricular systolic function is normal and the ejection fraction is within normal range. T he Ejection Fraction is >55%. There is grossly normal LV segmental wall motion. Technically difficult images Transmitral Doppler flow pattern is Grade II-pseudonormal filling dynamics. RIGHT VENTRICLE Not well visualized. The right ventricular systolic function is grossly normal. ATRIA The left atrium size is normal. The right atrium size is normal. The interatrial septum is intact wit h no evidence for an atrial septal defect or patent foramen ovale as noted on 2-D or Doppler imaging. AORTIC VALVE The aortic valve is not well visualized. Doppler and Color Flow revealed no significant aortic regurg itation. There is no significant aortic valvular stenosis. MITRAL VALVE The mitral valve is normal in structure and function. There is no evidence of mitral valve prolapse. There is no mitral valve stenosis. Doppler and Color Flow revealed no mitral valve regurgitation note d. TRICUSPID VALVE The tricuspid valve is not well visualized. Doppler and Color Flow revealed no tricuspid valve regurg itation noted. There is no tricuspid valve stenosis. PULMONIC VALVE The pulmonic valve is not well visualized. Doppler and Color Flow revealed no pulmonic valvular regur gitation. GREAT VESSELS The aortic root is normal in size. The IVC is normal in size and collapses >50% with inspiration. PERICARDIAL EFFUSION There is no evidence of significant pericardial effusion. Critical Notification Critical Value: No <Conclusion> The left ventricular systolic function is normal and the ejection fraction is within normal range. Th e Ejection Fraction is >55%. There is grossly normal LV segmental wall motion. Technically difficult images Signed by : Naseem Powell, Electronically Approved : 07/21/2018 17:17:50
--- NOTE | 2018-07-21 18:09 | NUR ---
pt provided with written prescriptions, [facility] $4 list, medication education and wirtten discharge instructions. Signed copy of discharge papers are in chart
[2018-07-21] MEDS ORDERED: METOPROLOL TART IMMED RELEASE 50 MG TABLET. PO SCH (21:00)
== END 2018-07-21 19:07 | disposition home or self-care (01) ==
LOC: ER 13:13 → 2 SOUTH 16:00
PROVIDERS: ADMIT Internal Medicine; ATTEND Internal Medicine
DX: I47.1 Supraventricular tachycardia (principal); R42 Dizziness and giddiness; J45.909 Unspecified asthma, uncomplicated; I10 Essential (primary) hypertension; Z90.710 Acquired absence of both cervix and uterus; Z90.711 Acquired absence of uterus with remaining cervical stump; Z90.721 Acquired absence of ovaries, unilateral; F17.210 Nicotine dependence, cigarettes, uncomplicated; D72.829 Elevated white blood cell count, unspecified; N17.9 Acute kidney failure, unspecified
CPT/HCPCS: 36415; 36600; 71045; 80048; 80053; 80061; 82550; 82553; 83735; 83880; 84439; 84443; 84484; 85007; 85025; 85610; 85730; 93005; 93306; 94640; 96365; 96366; 96375; 96376; 99284; G0378; J0153; J2930; J3490; J7512; J7620; G0379; J7120